=== PATIENT | male | born 1955 | race Caucasian/White ===

== ENCOUNTER 2017-09-14 22:44 | Emergency (ER) | payer BC ==
[~2017-09-14] VITALS: Ht 177.8 cm; Wt 104.3 kg
[2017-09-14 22:50] VITALS: BP_SYST 189
== END 2017-09-14 23:15 | disposition left against medical advice (07) ==
LOC: SED 22:44
DX: R04.0 Epistaxis (principal); Z53.21 Procedure and treatment not carried out due to patient leaving prior to being seen by health care provider

== ENCOUNTER 2019-08-12 19:58 | Inpatient (IN) | payer BC ==
[~2019-08-12] VITALS: Ht 175.3 cm; Wt 91.6 kg
[2019-08-12 20:07] VITALS: BP_SYST 133
--- NOTE | 2019-08-12 20:11 | NUR ---
Patient to ER bed 06 to gown for evaluation. Side rails up. Report given to SERAFIN Holt
--- NOTE | 2019-08-12 20:14 | NUR ---
ER Dr. Bryson at bedside examining patient.
--- NOTE | 2019-08-12 20:16 | NUR ---
Pt present to ER with c/o increased anxiety. Pt brought in pt for increased anxiety for the past month. Pt states he lost money "about a month ago" at a coffee place. Pt states chest pain located in the middle of chest and rates pain 10/10. Pt states pain is a "stabbing pain." Pt states he "can't sleep and has tingling down arms and legs." Pt states he has nightmares of losing money "over and over again." Pt states he has lost approximately 20 pounds the last month due to lack of appetite. Pt states he was prescribed ativan but ran out. Pt denies SOB, dizziness and thoughts of suicide or hurting self. Will continue to monitor.
[2019-08-12] MEDS ORDERED: VENL75CA PO (20:17)
[2019-08-12] MEDS ORDERED: CAT.1 PO (20:17)
[2019-08-12] MEDS ORDERED: MIRT15TA7 PO (20:17)
[2019-08-12] MEDS ORDERED: METF1000 PO (20:17)
[2019-08-12] MEDS ORDERED: LORA-258 PO (20:17)
[2019-08-12] MEDS ORDERED: LOSA1TAB43 PO (20:17)
[2019-08-12] MEDS ORDERED: NOR10 PO (20:17)
--- NOTE | 2019-08-12 20:18 | NUR ---
Medication reconciliation completed with information provided by self. Any prior medication reconciliation on file was reviewed and corrected.
[2019-08-12] MEDS ORDERED: ASPIRIN 325 MG TABLET PO ONE (20:30)
[2019-08-12] MEDS ORDERED: LORazepam 2 MG/ML VIAL IVP ONE (20:30)
--- NOTE | 2019-08-12 20:34 | NUR ---
# 18 gauge angiocath placed to LAC. Use of asceptic technique. Opsite placed over site. Blood return noted. Blood for lab drawn from site. Flushed with 10 cc of normal saline. No evidence of infiltration noted. Patient tolerated well.
--- NOTE | 2019-08-12 20:36 | NUR ---
medicated per md orders. patient tolerated well
[2019-08-12 20:51] LABS: BASOPHILS % (AUTO) 0.6 % (0.0-2.0); EOSINOPHILS # (AUTO) 0.3 K/uL (0.0-0.4); LYMPHOCYTES # (AUTO) 2.4 K/uL (1.0-5.5)
[2019-08-12 21:00] LABS: EOSINOPHILS % (AUTO) 3.4 % (0.0-4.0); HEMATOCRIT 41.7 % (36-54); HEMOGLOBIN 14.9 g/dL (14.0-18.0); LYMPHOCYTES % (AUTO) 28.8 % (20.5-51.5); MEAN CORPUSCULAR HEMOGLOBIN 30 pg (27-31); MEAN CORPUSCULAR HGB CONC 36 % (32-36); MEAN CORPUSCULAR VOLUME 85 fL (79.0-98.0); MONOCYTES # (AUTO) 0.6 K/uL (0.0-1.0); MONOCYTES % (AUTO) 7.7 % (1.7-9.3); NEUTROPHILS # (AUTO) 4.9 K/uL (1.8-7.7); NEUTROPHILS % (AUTO) 59.5 % (40.0-70.0); PLATELET COUNT (AUTO) 294 K/uL (130-430); RED BLOOD CELL COUNT(AUTO) 4.92 MIL/uL (4.2-6.2); RED CELL DISTRIBUTION WIDTH 13.1 % (9.0-15.0); WHITE BLOOD COUNT (AUTO) 8.2 K/uL (4.8-10.8)
[2019-08-12 21:26] LABS: CALCIUM 9.3 mg/dL (8.4-11.0); CREATININE 1.62 mg/dL (0.55-1.30)
[2019-08-12 21:37] LABS: ALBUMIN 3.8 g/dL (3.4-4.8); TOTAL BILIRUBIN 1.4 mg/dL (0.0-1.0)
[2019-08-12 21:47] LABS: POTASSIUM 2.8 mmol/L (3.5-5.1)
[2019-08-12] MEDS ORDERED: KCL 20 mEq in 100 mL (PREMIX) 100 ML IV ONE (22:00)
[2019-08-12] MEDS ORDERED: POTASSIUM CHLORIDE 20 MEQ/PKT PACKET PO ONE (22:00)
--- NOTE | 2019-08-12 22:21 | NUR ---
Pt medicated with potassium. Pt tolerated well. Will continue to monitor.
--- NOTE | 2019-08-12 23:00 | NUR ---
ORDERS RECIEVED FROM DR. JOINER.
--- NOTE | 2019-08-13 00:13 | NUR ---
Patient resting quietly with at bedside. No acute distress noted. Vital signs within normal range. Will continue to monitor.
[2019-08-13] MEDS ORDERED: LORazepam 1 MG TABLET PO PRN ×2 (00:30→15:00)
[2019-08-13] MEDS ORDERED: INSULIN REGULAR, HUMAN 100 UNITS/ML, 10 ML VIAL (humuLIN R) SUBCUT PRN (00:30)
--- NOTE | 2019-08-13 01:06 | NUR ---
Patient will be admitted to [facility]. Admitted to Telemetry unit. Will go to room 130B. Belongings list completed. Complete and up to date summary report printed. SBAR report to be given at bedside with opportunity for questions.
--- NOTE | 2019-08-13 01:08 | NUR ---
Transfer to Telemetry 130B via ACLS protocol. Licensed nurse present. IV present no signs or symptoms of infiltration.
--- NOTE | 2019-08-13 02:20 | NUR ---
BROUGHT IN FROM .VIA [facility] WITH AN ADMITTING DIAGNOSIS OF CHEST PAIN. PLACED IN ROOM 130-B. PT. IS AWAKE, STUPOROUS, VERBALLY RESPONSIVE. AFEBRILE, NOT IN ACUTE DISTRESS. DENIES ANY PAIN OR DISCOMFORT. VERBALIZED RELIEF OF ALL SYMPTOMS AND IS FEELING VERY RELAXED AT THIS TIME. CX=998/92, OTHER VS ARE WITHIN NORMAL LIMITS. PT.HOOKED TO THE HOUSEMAID AND IS SINUS RHYTHM AT 80'S/MINUTE ON THE MONITOR. VS STABLE, WILL CONTINUE TO MONITOR. NEEDS ATTENDED.
--- NOTE | 2019-08-13 02:20 | NUR ---
ADMISSION: The patient, [place] FRIAS, 63 y/o, M admitted by JAISON JOINER MD, was given written information regarding hospital policies, unit procedures and contact persons. Valuables were checked and pt was informed his nurse will be Jhoan.
[2019-08-13 02:34] VITALS: BP_SYST 143
--- NOTE | 2019-08-13 04:00 | NUR ---
ASLEEP, NOT IN ACUTE DISTRESS. NO PAIN OR DISCOMFORT NOTED. NO CHANGE IN CONDITION.
--- NOTE | 2019-08-13 04:15 | NUR ---
Consultation Paged Reason for Consultation: CP Was consult called: Y Person who was notified: Nancy Consulting Physician: Steven Estrada Clinical Services Director Ordering Physician: Dr. Rosario
--- NOTE | 2019-08-13 06:18 | NUR ---
FINGERSTICK BLOOD SUGAR TXDRS=481. NO INSULIN COVERAGE NEEDED.
[2019-08-13 06:36] LABS: THYROID STIMULATING HORMONE 1.95 uIu/mL (0.36-3.74)
--- NOTE | 2019-08-13 07:10 | NUR ---
ENDORSED CARE TO ALBAN NUNEZ.
--- NOTE | 2019-08-13 09:10 | NUR ---
Patient resting in bed able to sleep after admission , feeling of chest discomfort whenever he feels anxious , due Ativan given PO ,safety / fall precaution initiated , Dr. Fierro aware for Lexiscan in am at 1100 hour , instructed patient no caffeine verbalized understanding.
[2019-08-13 09:16] VITALS: BP_SYST 129
[2019-08-13] MEDS ORDERED: cloNIDine HCL 0.1 MG TABLET PO PRN (09:30)
[2019-08-13] MEDS ORDERED: PANTOPRAZOLE SODIUM 40 MG TAB PO ONE (09:30)
[2019-08-13] MEDS ORDERED: POTASSIUM CHLORIDE 20 MEQ TAB.PRT.SR PO ONE (12:15)
[2019-08-13 12:21] VITALS: BP_SYST 138
[2019-08-13] MEDS: LR 1,000 ML IV SCH ×2 (12:57→21:46)
[2019-08-13 13:11] LABS: ANION GAP 7 (5-15); CALCIUM 8.8 mg/dL (8.4-11.0); CHLORIDE 101 mmol/L (98-107); CREATININE 1.13 mg/dL (0.55-1.30); GLUCOSE 133 mg/dL (70-99); POTASSIUM 3.6 mmol/L (3.5-5.1); SODIUM SERUM 136 mmol/L (136-145); UREA NITROGEN, BLOOD 29 mg/dL (8-21)
[2019-08-13 13:20] LABS: GFR AFRICAN AMERICAN 85 mL/min (>90)
--- NOTE | 2019-08-13 15:01 | NUR ---
Psychosocial /safety Patient ambulate to hallway with steady gait , using IV pole verbalized feeling of anxiety , walking is not helping , Dr. Rosario informed with n.o. carried out safety/fall precaution initiated.
[2019-08-13 16:30] VITALS: BP_SYST 140
--- NOTE | 2019-08-13 17:00 | NUR ---
Patient was reminded that we need a urine specimen for analysis , clean bottle given will follow up.
[2019-08-13] MEDS: metFORMIN HCL 500 MG TABLET PO SCH (17:08)
[2019-08-13] MEDS ORDERED: metFORMIN HCL 500 MG TABLET PO SCH (18:00)
[2019-08-13] MEDS ORDERED: LORazepam 2 MG/ML VIAL IVP PRN (18:00)
[2019-08-13 19:05] VITALS: BP_SYST 147
[2019-08-13 20:00] VITALS: BP_SYST 147
[2019-08-13] MEDS ORDERED: MIRTAZAPINE 15 MG TABLET PO SCH ×2 (21:00)
[2019-08-13] MEDS ORDERED: amLODIPine BESYLATE 10 MG TABLET PO SCH (21:00)
--- NOTE | 2019-08-13 21:03 | NUR ---
patient refused lorazepam iv. Dr Rosario pagejohanny for orders,awaiting orders. Addendum: 08/13/19 at 2225 by [facility] wireless manager Dr Carroll called back and informed aboput the patient.s request. ordered lorazepam 1 mg ivp and given
[2019-08-13] MEDS: VENLAFAXINE HCL 50 MG TABLET PO SCH (21:23)
[2019-08-13] MEDS: LORazepam 2 MG/ML VIAL IVP PRN (21:42)
[2019-08-13 22:11] LABS: CHOLESTEROL 145 mg/dL (<200); HDL CHOLESTEROL 37 mg/dL (>45); LDL CHOLESTEROL 91 mg/dL (<100); TRIGLYCERIDES 126 mg/dL (30-150)
--- NOTE | 2019-08-13 22:25 | NUR ---
patient claims lorazepam ivp did not do anything and he is still awake,requesting for sleeping medications but none. Dr Rosario paged again for patient,s request.
[2019-08-13] MEDS ORDERED: TEMAZEPAM 15 MG CAPSULE PO PRN (23:00)
--- NOTE | 2019-08-13 23:15 | NUR ---
restoril 30 mg po given fpr sleep per Dr Marlene harris
--- NOTE | 2019-08-14 00:23 | NUR ---
asleep.vital signs not taken as patient desires to sleep
[2019-08-14 04:00] VITALS: BP_SYST 154
--- NOTE | 2019-08-14 05:58 | NUR ---
PLACED ON OS @ 2LITER NASAL CANNULA THE PAIIENTS SATURATION TO 89% WHEN ASLEEP. WILL INFORMDR JOINER ABOUT IT
--- NOTE | 2019-08-14 07:20 | NUR ---
report given to the day shift rn to relay to Dr Rosario that the patient was placed on oxegen at 2l nasal cannula as the patient has low saturation when asleep/ 1 juice given for blood sugar 105mg/dl. npo thereafter,
[2019-08-14] MEDS: metFORMIN HCL 500 MG TABLET PO SCH (08:00)
[2019-08-14 08:07] VITALS: BP_SYST 151
[2019-08-14 08:18] LABS: BASOPHILS % (AUTO) 0.5 % (0.0-2.0); EOSINOPHILS # (AUTO) 0.4 K/uL (0.0-0.4); EOSINOPHILS % (AUTO) 4.6 % (0.0-4.0); HEMATOCRIT 39.1 % (36-54); HEMOGLOBIN 13.6 g/dL (14.0-18.0); LYMPHOCYTES # (AUTO) 2.1 K/uL (1.0-5.5); LYMPHOCYTES % (AUTO) 26.6 % (20.5-51.5); MEAN CORPUSCULAR HEMOGLOBIN 30 pg (27-31); MEAN CORPUSCULAR HGB CONC 35 % (32-36); MEAN CORPUSCULAR VOLUME 86 fL (79.0-98.0); MONOCYTES # (AUTO) 0.7 K/uL (0.0-1.0); NEUTROPHILS # (AUTO) 4.8 K/uL (1.8-7.7); NEUTROPHILS % (AUTO) 59.3 % (40.0-70.0); PLATELET COUNT (AUTO) 209 K/uL (130-430); RED BLOOD CELL COUNT(AUTO) 4.55 MIL/uL (4.2-6.2); RED CELL DISTRIBUTION WIDTH 13.4 % (9.0-15.0)
[2019-08-14 08:57] LABS: ALBUMIN 3.2 g/dL (3.4-4.8); CALCIUM 8.4 mg/dL (8.4-11.0); CREATININE 1.06 mg/dL (0.55-1.30); POTASSIUM 3.5 mmol/L (3.5-5.1); TOTAL BILIRUBIN 0.9 mg/dL (0.0-1.0)
[2019-08-14] MEDS ORDERED: PANTOPRAZOLE SODIUM 40 MG TAB PO SCH (09:00)
--- NOTE | 2019-08-14 09:38 | NUR ---
To cardio department for Stress test, NPO alert/oriented denies any chest pain no anxiety , endorsed patient to Lien.
[2019-08-14 09:49] LABS: BARBITURATE, URINE NEGATIVE (NEG <=200); BENZODIAZEPINE, URINE POSITIVE (NEG <=150); CANNABINOID, URINE NEGATIVE (NEG <=50); COCAINE, URINE NEGATIVE (NEG <=150); METHAMPHETAMINES SCREEN,URINE NEGATIVE (NEG <=500); OPIATE, URINE NEGATIVE (NEG <=100); PHENCYCLIDINE SCREEN,URINE NEGATIVE (NEG <=25); UR TRICYCLIC ANTIDEPRESSANTS NEGATIVE (NEG <=300); URINE AMPHETAMINE NEGATIVE (NEG <=500); URINE METHADONE NEGATIVE (NEG <=200); URINE OXYCODONE SCREEN NEGATIVE (NEG <=100); URINE PROPOXYPHENE SCREEN NEGATIVE (NEG <=300)
--- NOTE | 2019-08-14 10:40 | NUR ---
Stress test completed tolerates well per cardiology physician, early lunch served and blood sugar within normal limits,needs attended, encouraged patient to increase oral fluid intake verbalized understanding.
[2019-08-14] MEDS: VENLAFAXINE HCL 50 MG TABLET PO SCH ×2 (10:44→16:34)
[2019-08-14] MEDS ORDERED: REGADENOSON 0.4 MG/5 ML SYRINGE IVP ONE (11:00)
[2019-08-14 11:04] VITALS: BP_SYST 133
[2019-08-14] MEDS: LR 1,000 ML IV SCH (11:34)
[2019-08-14 12:02] LABS: BILIRUBIN,URINE NEGATIVE (NEGATIVE); BLOOD, URINE NEGATIVE (NEGATIVE); CLARITY/URINE CLEAR (CLEAR); COLOR,URINE YELLOW (YELLOW); GLUCOSE,URINE TRACE (NEGATIVE); KETONES,URINE NEGATIVE (NEGATIVE); LEUKOCYTE ESTERASE ,URINE NEGATIVE (NEGATIVE); NITRITE, URINE NEGATIVE (NEGATIVE); PH,URINE 6.5 (5.0-8.0); PROTEIN URINE NEGATIVE (NEGATIVE); UROBILINOGEN,URINE 0.2 (0.2-1.0)
--- NOTE | 2019-08-14 12:25 | NUR ---
Patient is having a bad anxiety worried at home , asking to give him to relax , Ativan 1 mg IV push given slowly , safety/fall precaution initiated verbalized understanding., will monitor, pagejohanny Rosario. Addendum: 08/14/19 at 1257 by Dena Pal RN Patient sleeping, telemetry NSR will monitor.
[2019-08-14] MEDS: LORazepam 2 MG/ML VIAL IVP PRN (12:31)
--- NOTE | 2019-08-14 14:45 | NUR ---
Seen and examined by patient wants to go home anxiety is controlled, BELKIS was informed she will come to lemon picker the by 5 pm.
[2019-08-14] MEDS ORDERED: LOSA100T3 PO (14:55)
[2019-08-14] MEDS ORDERED: PRO40 PO (14:55)
[2019-08-14 15:49] VITALS: BP_SYST 138
--- NOTE | 2019-08-14 16:07 | NUR ---
ROUNDS IN THE ROOM WITH DR JOINER WHO INFORMED PATIENT ABOUT FAMILY REQUEST OF PSYCHIATRIC EVALUTION DUE TO PATIENT ANXIETY. PATIENT APPEARS ANXIOUS. EXPLAINED TO PATIENT THAT A PSYCHIATRIST WILL SEE HIM TODAY OR TOMORROW. PATIENT PREFERED TO BE SEEN OUT PATIENT BY A PSYCHIATRIST OUTPATIENT AND WANTS TO GO HOME
[2019-08-14 16:08] VITALS: BP_SYST 138
--- NOTE | 2019-08-14 16:15 | NUR ---
D/C Patient Patient given medication reconciliation form and D/C instructions. Exit Care provided. Patient verbalized understanding. MD discussed with patient the results and treatment provided. Ambulatory with steady gait for discharge to home. Patient in stable condition, ID band removed. IV catheter removed, intact and dressing applied, no active bleeding. Rx of losartan and pantoprazole given. Patient educated on pain management.
--- NOTE | 2019-08-14 17:35 | NUR ---
Discharged home accompanied by the , instruction repeated to , to collect medication in pharmacy [facility] verbalized understanding, all belongings taken.
== END 2019-08-14 17:35 | disposition home or self-care (01) | DRG 391 ==
LOC: SED 19:58 → STU 08-13 00:20
PROVIDERS: ADMIT Internal Medicine; ATTEND Internal Medicine
DX: K29.70 Gastritis, unspecified, without bleeding (principal); N17.0 Acute kidney failure with tubular necrosis; R07.89 Other chest pain; E11.9 Type 2 diabetes mellitus without complications; E87.6 Hypokalemia; F32.9 Major depressive disorder, single episode, unspecified; T50.2X5A Adverse effect of carbonic-anhydrase inhibitors, benzothiadiazides and other diuretics, initial encounter; F41.9 Anxiety disorder, unspecified; E78.5 Hyperlipidemia, unspecified; E78.00 Pure hypercholesterolemia, unspecified; I10 Essential (primary) hypertension; Z87.891 Personal history of nicotine dependence; Z79.899 Other long term (current) drug therapy; Y92.89 Other specified places as the place of occurrence of the external cause
CPT/HCPCS: 36415; 71045; 71270-TC; 80048; 80053; 80061; 80307; 81003; 82550-TC; 82962; 83880; 84443-TC; 84484; 85025; 93005; 93017; 93306; 96374; 99285; G0378; J1815; J2060; J2785; J3480; J7120

== ENCOUNTER 2019-10-13 14:42 | Inpatient (IN) | payer BC ==
[~2019-10-13] VITALS: Ht 172.7 cm; Wt 88.0 kg
[~2019-10-13 14:42] MED LIST: CAT.1 PO; LORA-258 PO; LOSA100T3 PO; METF1000 PO; MIRT15TA7 PO; NOR10 PO; PRO40 PO; VENL75CA PO
[2019-10-13 14:45] VITALS: BP_SYST 137
--- NOTE | 2019-10-13 14:50 | NUR ---
Patient triaged and placed in waiting room. VSS and patient appears in no acute distress at this time. Accompanied by SELF, awaiting available bed, and MD notified of need for MSE.
--- NOTE | 2019-10-13 15:28 | NUR ---
BROUGHT BACK TO BED #8 AND REPORT GIVEN TO DOYLE
--- NOTE | 2019-10-13 15:47 | NUR ---
ER Dr. Starr at bedside examining patient.
[2019-10-13] MEDS ORDERED: KETOROLAC TROMETHAMINE 60 MG/2 ML VIAL IM ONE (16:00)
[2019-10-13 16:01] LABS: BASOPHILS % (AUTO) 0.4 % (0.0-2.0); EOSINOPHILS # (AUTO) 0.2 K/uL (0.0-0.4); EOSINOPHILS % (AUTO) 2.8 % (0.0-4.0); HEMATOCRIT 39.7 % (36-54); HEMOGLOBIN 13.6 g/dL (14.0-18.0); LYMPHOCYTES # (AUTO) 1.2 K/uL (1.0-5.5); LYMPHOCYTES % (AUTO) 16.3 % (20.5-51.5); MEAN CORPUSCULAR HEMOGLOBIN 30 pg (27-31); MEAN CORPUSCULAR HGB CONC 34 % (32-36); MEAN CORPUSCULAR VOLUME 88 fL (79.0-98.0); MONOCYTES # (AUTO) 0.7 K/uL (0.0-1.0); MONOCYTES % (AUTO) 9.7 % (1.7-9.3); NEUTROPHILS # (AUTO) 5.1 K/uL (1.8-7.7); NEUTROPHILS % (AUTO) 70.8 % (40.0-70.0); PLATELET COUNT (AUTO) 274 K/uL (130-430); RED BLOOD CELL COUNT(AUTO) 4.53 MIL/uL (4.2-6.2); WHITE BLOOD COUNT (AUTO) 7.2 K/uL (4.8-10.8)
--- NOTE | 2019-10-13 16:14 | NUR ---
Pt c/o lower abd pain that started last night. States that he hasn't had a BM for 10 days. Denies n/v/d. Hx of kidney stones, states that he thought it was a kidney stone. Denies dysuria
--- NOTE | 2019-10-13 16:18 | NUR ---
Medicated for pain per MD orders. Tolerated well, no adverse reaction. Off unit for CT via wheelchair
[2019-10-13 16:20] LABS: INR 1.1 (0.80-1.20); PROTHROMBIN TIME 11.1 SECS (9.5-12.5)
[2019-10-13 16:40] LABS: CALCIUM 8.7 mg/dL (8.4-11.0); CREATININE 0.9 mg/dL (0.55-1.30); POTASSIUM 3.8 mmol/L (3.5-5.1)
[2019-10-13 16:46] LABS: ALBUMIN 3.1 g/dL (3.4-4.8); TOTAL BILIRUBIN 0.7 mg/dL (0.0-1.0)
--- NOTE | 2019-10-13 17:22 | NUR ---
Dr. Yee spoke with Dr. Starr, states to call Dr. Rosario regarding admission.
--- NOTE | 2019-10-13 17:25 | NUR ---
Dr. Starr at bedside speaking with pt regarding ED results and admission.
--- NOTE | 2019-10-13 17:48 | NUR ---
Unable to update med rec at this time. Pt can't remember the names of the medications, states that his will bring his meds
--- NOTE | 2019-10-13 18:04 | NUR ---
ADMISSION NOTE Received patient from ER via brian, received report from DOYLE BETANCOURT. Patient admitted with diagnosis of ABDOMINAL PAIN. Patient oriented to hospital routine, call light, toileting and safety-patient verbalized understanding.
[2019-10-13 18:14] VITALS: BP_SYST 161
--- NOTE | 2019-10-13 18:46 | NUR ---
RN note patient is anxious and pacing in the room and around the station, states he is waiting for his , a message was left with dietary so they can bring him a dinner tray, water was brought to the patient, no signs of distress at this time, will bring medications from home to confirm with us, walks steady, IV dressing secured, no other needs addressed at this time, will endorse care to weight shifter nurse to continue with care, patient states that he sees a psychiatrist but it has been a month since he last saw him.
--- NOTE | 2019-10-13 19:15 | NUR ---
INITIAL NOTES: pt is awake, alert, oriented x 3. no pain. no sob, anxious, stable. ambulatory. steady gait. now sitting on bed, eating snacks, explained to pt plan of care plan of care, pt verblaized understanding. needs attended. call light in reach. safety precaution on. will monitor
--- NOTE | 2019-10-13 19:30 | NUR ---
SEEN BY DR. JOINER AT BEDSIDE.
[2019-10-13 19:38] VITALS: BP_SYST 156
[2019-10-13] MEDS ORDERED: DEXTROSE 50% JECT 50 ML DISP.SYRIN IVP PRN (19:45)
[2019-10-13] MEDS ORDERED: cloNIDine HCL 0.1 MG TABLET PO SCH (19:45)
[2019-10-13] MEDS: amLODIPine BESYLATE 10 MG TABLET PO SCH (20:44)
[2019-10-13] MEDS: MIRTAZAPINE 15 MG TABLET PO SCH (20:45)
[2019-10-13] MEDS: LORazepam 1 MG TABLET PO PRN (20:47)
[2019-10-13] MEDS: INSULIN REGULAR, HUMAN 100 UNITS/ML, 10 ML VIAL (humuLIN R) SUBCUT PRN (20:58)
[2019-10-13] MEDS ORDERED: MIRTAZAPINE 15 MG TABLET PO SCH (21:00)
[2019-10-13] MEDS ORDERED: TEMAZEPAM 15 MG CAPSULE PO PRN (21:15)
--- NOTE | 2019-10-13 21:45 | NUR ---
pt is awake, alert, no sob, no pain. talking to at bedside.
--- NOTE | 2019-10-13 23:06 | NUR ---
pt is sleeping, comfortable. no sob, stable, safety precaution in placed.
[2019-10-13 23:43] VITALS: BP_SYST 169
[2019-10-14] VITALS (7 sets, daily range): BP systolic 151–163
--- NOTE | 2019-10-14 00:06 | NUR ---
Consultation Paged Reason for Consultation: Lymphoma Was consult called: Y Person who was notified: Nancy Consulting Physician: Amee Stover Welder And Fitter Ordering Physician: Dr. Rosario Addendum: 10/14/19 at 0010 by Mena Lynn MO/ Person Who was Notified: Nicolasa
[2019-10-14] MEDS: cloNIDine HCL 0.1 MG TABLET PO PRN ×2 (00:09→08:36)
--- NOTE | 2019-10-14 00:35 | NUR ---
pt is sleeping, not distress, no sob, pt bp is high, prn clonidine given. stable. needs attended. safety precaution in placed.
--- NOTE | 2019-10-14 01:12 | NUR ---
Patient is sitting at bedside speaking to social work program coordinator, he took his medications without any complaints. Bed is low and locked, call light is within reach and two side rails are up. Advised patient to call if he should need anything. Mary BETANCOURT
--- NOTE | 2019-10-14 02:00 | NUR ---
sleeping on his side,comfortable, no sob, not distress. stable, safety precaution.
--- NOTE | 2019-10-14 04:54 | NUR ---
sleeping, no labored breathing, stable, no sign of pain. stable.
--- NOTE | 2019-10-14 06:23 | NUR ---
SLEEPING, NO PAIN, STABLE, BS-108, NEEDS ATTENDED.
--- NOTE | 2019-10-14 07:10 | NUR ---
closing: pt is resting, wakes up during report. stable. no pain. needs attended. bedside report given to am rn.
--- NOTE | 2019-10-14 07:35 | NUR ---
Patient complains of pain, paged to ask for pain meds, meds ordered were zofran 4mg, norco 5mg for mod pain, norco 10mg for severe pain and colace 250mg BID for constipation. [place] 10mg was given for his current severe pain. I will assess pain again. Mary BETANCOURT
[2019-10-14] MEDS: LOSARTAN POTASSIUM 50 MG TABLET (COZAAR) PO SCH (08:07)
[2019-10-14] MEDS: PANTOPRAZOLE SODIUM 40 MG TAB PO SCH (08:07)
[2019-10-14] MEDS: metFORMIN HCL 500 MG TABLET PO SCH ×2 (08:07→17:12)
[2019-10-14] MEDS ORDERED: ONDANSETRON HCL 4 MG/2 ML VIAL IM PRN (08:15)
[2019-10-14] MEDS: HYDROcodone/ACETAMIN 10-325 MG TAB PO PRN ×2 (08:36→20:58)
--- NOTE | 2019-10-14 09:15 | NUR ---
Pain assessment, pain has subsided, patient states he felt anxious so we gave him ativan 1mg. Patient is in bed watching TV. He does not present new complaints. Juan M BETANCOURT
[2019-10-14] MEDS: LORazepam 1 MG TABLET PO PRN ×4 (09:20→20:58)
[2019-10-14] MEDS ORDERED: DIATR MEGLU/DIATRIZ SOD 30 ML SOLUTION PO ONE (10:34)
[2019-10-14] MEDS: INSULIN REGULAR, HUMAN 100 UNITS/ML, 10 ML VIAL (humuLIN R) SUBCUT PRN ×3 (11:57→21:08)
[2019-10-14] MEDS: DOCUSATE SODIUM 250 MG CAPSULE PO SCH ×2 (11:58→20:58)
[2019-10-14] MEDS: HYDROcodone/ACETAMIN 5-325 MG TAB (NORCO/ VICODIN) PO PRN (12:46)
[2019-10-14] MEDS ORDERED: IOHEXOL 100 ML IV ONE (13:40)
--- NOTE | 2019-10-14 14:34 | NUR ---
Cnc Mill Operator: met with pt. to conduct a DCPA and a Social Work Interview. BALLOON MAKER first met with Rn. Underwood to inquire about the suicidal risk referral BALLOON MAKER received. Rn stated she had pt. use a paper tray but wanted to speak to him. Rn and BALLOON MAKER went to speak to pt. Rn asked pt. if he was suicidal. Pt. replied he was not. BALLOON MAKER introduced self to pt. He was able to confirm the demographic info on his face sheet. Re family support. pt. stated his is keeping him together. She will be visiting him later in the day. Pt. also has two children ages, 24 and 21 who are both employed and one attends college. Pt. stated he has been depressed. 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 Since then he has not been able to sleep well. He was [facility] to [facility] in August of 2018 because he stated he was feeling heart palpitations and may have been suffering from a panic attack. He stated he suffered from a nervous breakdown. Pt. stated he is taking depression medication, but if he feels good on a particular day, he will not take it. BALLOON MAKER tried to educate him on the importance of taking the medication as the DrEssie prescribed. It he stops taking the meds. he will not feel well. Pt. said he understood. He went on to say as he grew teary eyed, "My regret is that I lost the money and now I cannot give it my children. BALLOON MAKER asked pt. a couple of times about feeling suicidal. Pt. stated each time that he was not suicidal. During the conversation, pt. stated, "Ok, I have felt suicidal all throughout August and " He said he would harm himself with pills. BALLOON MAKER asked him if he was feeling suicidal today. Pt. hesitated and said he was not. BALLOON MAKER asked pt. if he would feel comfortable speaking with a therapist. Pt. stated he would. BALLOON MAKER gave pt. some mental health resources even though pt. stated he goes to see Dr. Shirin Orourke in [place] a PCP. Pt. stated his suicidal thoughts have taken a back seat now that he is in the hospital. He stated one of the Drs. came in to see him and used the word,"Lymphoma". This scared him and now he said DrEssie was vague, but he does not know if he has Cancer. Pt said even saying the word, Cancer makes him feel nervous and anxious. BALLOON MAKER tried to ease pts. worries and told him, it is good to get tested so the Dr. can come up with the correct treatment plan. Pt. agreed to wait to be taken for a scan and to wait for his Dr. to come speak to him. Pt. was nervous and anxious. BALLOON MAKER asked pt. if he needed anything. Pt. replied he did not. BALLOON MAKER spoke to Rn. Underwood to share with her some pertinent info from her interview with the pt. BALLOON MAKER asked if she could have Dr. Rosario get a psyc. eval on pt. Rn texted Dr. Rosario some info and made a request. BALLOON MAKER will remain available as needed. Addendum: 10/14/19 at 1653 by Teresa DELCID Cnc Mill Operator: BALLOON MAKER gave pt. mental health resources.
--- NOTE | 2019-10-14 14:38 | NUR ---
CONSULT PSYCH DEPRESSION DR STEEN [phone] S/W [facility] OFFICE FACE SHEET FAXED TO [phone]
--- NOTE | 2019-10-14 15:56 | NUR ---
Patient is in bed and verbalizes no new complaints. He states that his pain is completely gone at the moment. Bed is low and locked, call light is within reach and two side rails are up. Advised patient to call if she should need anything. Mary BETANCOURT
--- NOTE | 2019-10-14 18:28 | NUR ---
Closing notes: Patient is in his room watching TV, he ate all of his dinner and asked for ativan which was given around 5:20pm. Doctor Marlene came by and explained the plan of care to the patient and what to expect next. A possible biopsy may be ordered if the recent CT justifies. Bed is low and locked, call-light is within reach. Mary BETANCOURT
--- NOTE | 2019-10-14 20:00 | NUR ---
received pt in bed with at bedside ,v/s and assessment done same stable ,pt pt request pain meds and stes he is anxious at this time meds given for same ,later apperas calm and resting in no further distress at this time
--- NOTE | 2019-10-14 20:00 | NUR ---
received pt in bed v/s and assessment done same stable , at bedside ,c/o pain meds given for same elsie wee.
[2019-10-14] MEDS: MIRTAZAPINE 15 MG TABLET PO SCH (20:57)
[2019-10-14] MEDS: amLODIPine BESYLATE 10 MG TABLET PO SCH (20:59)
[2019-10-15] VITALS: BP_SYST 150
--- NOTE | 2019-10-15 04:27 | NUR ---
NOTES: assumed care from nurse Almaguer. pt. sleeping when checked, no acute distress. condition observed. call light within reach.
--- NOTE | 2019-10-15 05:05 | NUR ---
NOTES: charge nurse Marjorie told me to give back nurse Rosina her pt. to resume care.
[2019-10-15 07:36] VITALS: BP_SYST 163
[2019-10-15] MEDS: metFORMIN HCL 500 MG TABLET PO SCH ×2 (07:58→17:46)
[2019-10-15 08:00] VITALS: BP_SYST 163
--- NOTE | 2019-10-15 08:00 | NUR ---
Morning rounds: Patient is in bed sleeping, vitals are stable and voices no complaints. There were no new finding in his morning assessment. Bed is low, locked and call light is by his side. Mary BETANCOURT
[2019-10-15] MEDS: buPROPion HCL 100 MG TABLET.SA PO SCH (08:05)
[2019-10-15] MEDS: LORazepam 1 MG TABLET PO PRN ×2 (08:06→13:26)
[2019-10-15] MEDS: DOCUSATE SODIUM 250 MG CAPSULE PO SCH ×2 (08:06→20:41)
[2019-10-15] MEDS: HYDROcodone/ACETAMIN 10-325 MG TAB PO PRN ×3 (08:07→20:42)
[2019-10-15] MEDS: LOSARTAN POTASSIUM 50 MG TABLET (COZAAR) PO SCH (08:07)
[2019-10-15] MEDS: PANTOPRAZOLE SODIUM 40 MG TAB PO SCH (08:07)
--- NOTE | 2019-10-15 09:30 | NUR ---
Patient states that he is in pain and feel anxious, ativan and norco was given for pain. Will follow-up on pain management care. Juan M BETANCOURT
[2019-10-15 12:16] VITALS: BP_SYST 152
--- NOTE | 2019-10-15 12:23 | NUR ---
Patient in bed sleeping, he presents no new complaints, his vitals were stable. Patient went back to sleep after vitals. Bed is low and locked, 2 side rails up and the call-light within reach. Mary BETANCOURT
--- NOTE | 2019-10-15 14:00 | NUR ---
Dietitian Recommendations * [facility] diet w/ Glucerna BID (ONS provides an additional 440 kcal/day, 20 gm protein/day) * Encourage increase PO intakes LP, RD Please refer to Nutrition Assessment for details. Addendum: 10/15/19 at [address] Amended: Links added. Addendum: 10/15/19 at [address] COMPLETED IN ERROR. PLEASE DISREGARD.
--- NOTE | 2019-10-15 14:02 | NUR ---
Dietitian Recommendations * Recommend CCHO, cardiac diet w/ Glucerna BID (ONS provides an additional 440 kcal/day, 20 gm protein/day) * Encourage increase PO intakes LP, RD Please refer to Nutrition Assessment for details. Addendum: 10/15/19 at [address] Amended: Links added.
[2019-10-15 14:06] LABS: % FREE PSA 43.6 % (.); FREE PSA 1.92 ng/mL
[2019-10-15 15:51] LABS: PROSTATE SPECIFIC AG TOTAL 4.4 ng/mL (0.0-4.0)
[2019-10-15 16:26] VITALS: BP_SYST 163
[2019-10-15] MEDS: cloNIDine HCL 0.1 MG TABLET PO PRN (16:35)
[2019-10-15] MEDS ORDERED: BISACODYL 5 MG TABLET.DR (DULCOLAX) PO ONE (17:30)
[2019-10-15] MEDS ORDERED: MAGNESIUM CITRATE 300 ML ORAL SOLUTION PO ONE (17:30)
[2019-10-15] MEDS: INSULIN REGULAR, HUMAN 100 UNITS/ML, 10 ML VIAL (humuLIN R) SUBCUT PRN ×2 (17:40→20:50)
[2019-10-15] MEDS: HYDROcodone/ACETAMIN 5-325 MG TAB (NORCO/ VICODIN) PO PRN (17:45)
--- NOTE | 2019-10-15 18:47 | NUR ---
Closing notes: Patient is sleeping, voices no new complaints. He hasn't defecated in a while so the doctor prescribed mag citrate to help with the stools. A catapress was given earlier today to address his high blood pressure this afternoon. He is awaiting for to come and give new orders. His bed is low and locked and call-light is within reach. Juan M BETANCOURT
[2019-10-15 20:00] VITALS: BP_SYST 152
--- NOTE | 2019-10-15 20:00 | NUR ---
PT IN BED V/S AND ASSESSMENT DONE SAME STABLE ,MEDS GIVEN FOR PAIN , AT BEDSIDE NO DISTRESS NOTED
[2019-10-15] MEDS: amLODIPine BESYLATE 10 MG TABLET PO SCH (20:41)
[2019-10-15] MEDS: MIRTAZAPINE 15 MG TABLET PO SCH (20:41)
[2019-10-16 00:40] VITALS: BP_SYST 159
[2019-10-16] MEDS: HYDROcodone/ACETAMIN 10-325 MG TAB PO PRN ×4 (00:53→15:18)
[2019-10-16] MEDS: LORazepam 1 MG TABLET PO PRN ×2 (00:53→16:07)
--- NOTE | 2019-10-16 01:13 | NUR ---
PT ASLEEP AT THIS TIME
[2019-10-16] MEDS: cloNIDine HCL 0.1 MG TABLET PO PRN (07:54)
[2019-10-16] MEDS: LOSARTAN POTASSIUM 50 MG TABLET (COZAAR) PO SCH (07:55)
[2019-10-16 08:00] VITALS: BP_SYST 166
--- NOTE | 2019-10-16 08:00 | NUR ---
ASSUMPTION OF CARE: RECEIVED PT A/A/OX4, DX:ACUTE PAIN, R/T ABDOMINAL PAIN, PRESENTLY C/O PAIN, 7/10 VIA NUMERIC SCALE TO ABDOMEN, WILL MEDICATE WITH PRESCIBED MED PER ORDERED BY Humberto, BREATH SOUNDS ARE CLEAR, BREATHING UNLABORED, IV SITE INTACT, PATENT, NO REDNESS OR SWELLING, ORIENTED TO UNIT, AND CALL LIGHT, INSTRUCTED TO UTILIZE CALL LIGHT WHEN GETTING OOB, VERBALIZED UNDERSTANDING, WILL CONT' TO MONITOR AND ASSESS.
[2019-10-16] MEDS ORDERED: BISACODYL 5 MG TABLET.DR (DULCOLAX) PO PRN (09:00)
--- NOTE | 2019-10-16 09:00 | NUR ---
SPRAY GUN REPAIRER HELPER: MORNING MEDS GIVEN, PER ORDERED BY Humberto, TOLERATED WELL, WILL CONT' TO MONITOR AND ASSESS.
--- NOTE | 2019-10-16 10:30 | NUR ---
VISIT: AT BEDSIDE FOR ASSESSMENT OF PT, DISCUSSED POC, VERBALIZED UNDERSTANDING, PLANS TO FOLLOW-UP OUTPATIENT WITH IN HIS OFFICE, PT WILL ARRANGE FOR APPT TIME AND DATE, 'S INFO GIVEN, WILL CONT' TO MONITOR AND ASSESS.
[2019-10-16] MEDS: DOCUSATE SODIUM 250 MG CAPSULE PO SCH ×2 (10:54→22:12)
[2019-10-16] MEDS: metFORMIN HCL 500 MG TABLET PO SCH ×2 (10:54→17:46)
[2019-10-16] MEDS: PANTOPRAZOLE SODIUM 40 MG TAB PO SCH (10:55)
[2019-10-16] MEDS: HYDROcodone/ACETAMIN 5-325 MG TAB (NORCO/ VICODIN) PO PRN ×2 (11:00→17:38)
[2019-10-16] MEDS: buPROPion HCL 100 MG TABLET.SA PO SCH (11:01)
--- NOTE | 2019-10-16 11:30 | NUR ---
GLUCOSE MONITORING: BLOOD SUGAR IEDRW=378, 2 UNITS REGULAR INSULIN GIVEN SQ, TOLERATED WELL, CONDITION REMAINS STABLE AT THIS TIME, NO BM NOTED, PT CONT' TO C/O PAIN TO ABD, MEDICATED PER ORDERED, AT BEDSIDE, CALL LIGHT PLACED WITHIN REACH, WILL CONT' TO MONITOR AND ASSESS.
[2019-10-16 12:00] VITALS: BP_SYST 139
[2019-10-16] MEDS: INSULIN REGULAR, HUMAN 100 UNITS/ML, 10 ML VIAL (humuLIN R) SUBCUT PRN (12:50)
[2019-10-16 17:00] VITALS: BP_SYST 144
[2019-10-16] MEDS: ACETAMINOPHEN 325 MG TABLET PO PRN ×2 (17:38→23:54)
--- NOTE | 2019-10-16 17:45 | NUR ---
VISIT: AT BEDSIDE FOR ASSESSMENT OF PT, NEW ORDERS GIVEN, WILL CONT' TO MONITOR, WILL ENDORSE TO ELEMENTARY ART TEACHER NURSE.
[2019-10-16] MEDS ORDERED: LACTULOSE 20 GM/30 ML UDC PO ONE (18:00)
--- NOTE | 2019-10-16 18:00 | NUR ---
GLUCOSE MONITORING: BLOOD SUGAR KMDFO=963, NO COVERAGE REQUIRED, CONDITION REMAINS STABLE, CALL LIGHT PLACED WITHIN REACH, NEEDS MET, WILL CONT' TO MONITOR AND ASSESS.
--- NOTE | 2019-10-16 19:49 | NUR ---
RECIEVED SITTING ON THE EDGE OF THE BED ANXIOUS AND WANTS TO GO HOME BUT INFORMED THAT THE ORDERS IS TO DISCHARGE HIM AFTER BM, PATIENT ASSISTED BACK TO BED AND MADE COMFORTABLE.WITH CALL LIGHT WITHIN REACH
[2019-10-16 20:10] VITALS: BP_SYST 148
--- NOTE | 2019-10-16 20:12 | NUR ---
PATIENT TEMP 101.9. TYLENOL DOSE GIVEN 2 HOURS BEFORE AND NO DOSE DUE.DR JOINER PAGED TO INFORM AND AWAITING RESPONSE. COLD COMPRESS AND SPONGE BATH WILL BE DONE.AWSITING RESPONSE OF DR JOINER.
--- NOTE | 2019-10-16 20:18 | NUR ---
Paged Dr. Rosario s/w Alice
--- NOTE | 2019-10-16 20:45 | NUR ---
DR JOINER PAGED FOR THE SECOND TIME
--- NOTE | 2019-10-16 20:55 | NUR ---
DR JOINER WITH ORDERS AND CARRIED OUT
[2019-10-16] MEDS ORDERED: LR 500 ML IV ONE (21:00)
--- NOTE | 2019-10-16 21:58 | NUR ---
to the xray department evelyn the ordered chest xray via [facility]
--- NOTE | 2019-10-16 21:59 | NUR ---
back to bed and fixed in bed and made comfortable
[2019-10-16] MEDS: MIRTAZAPINE 15 MG TABLET PO SCH (22:11)
[2019-10-16] MEDS: OSELTAMIVIR PHOSPHATE 75 MG CAPSULE PO SCH (22:12)
[2019-10-16] MEDS: amLODIPine BESYLATE 10 MG TABLET PO SCH (22:12)
[2019-10-16 23:13] VITALS: BP_SYST 155
--- NOTE | 2019-10-16 23:25 | NUR ---
PATIENT NOTED SHIVERING .IV CANULLA NOTED TO BE INFITRATED AND RED. PULLED BY THE PATIENT. TEMP 101.9. DR JOINER PAGED THE PATIENT UNABLE VOMITED THE TYLENOL MEDICATION. IV CANNULA TO THE LEFT HAND INSERTED ASEPTICALLY. AWAITING FOR DR JOINER RESPONSE
--- NOTE | 2019-10-16 23:30 | NUR ---
Kandace Rosario s/nilton Frankel
--- NOTE | 2019-10-16 23:41 | NUR ---
Paged Toro Valderrama s/w Nancy
--- NOTE | 2019-10-16 23:46 | NUR ---
DR JOINER PAGED FOR THE SECOND TIME THE PATIENT DID NOT HAVE A BM AND IS STILL HAVING TEMP 101.9. DR LORENZO .D CALLED TO INFORM ABOUT THE PATIENT IS REPEATEDLY HAVING HIGH GRADE FEVER AND NEEDS ORDERS, AWAITING RESPONSE
[2019-10-17] VITALS (10 sets, daily range): BP systolic 110–169
[2019-10-17] MEDS: LR 1,000 ML IV SCH ×2 (00:03→09:03)
--- NOTE | 2019-10-17 00:12 | NUR ---
TRANSFERED TO ROOM 132 BED A TO BE NEAR TO THE NURSES STATION THE PATIENT IS UN ABLE TO FOLLOW INSTRUCTION AND WILL STAND AND WALK AROUND,WITH COMPLAINTS OF NAUSEA AND HAD VOMITED X1 PRIOR. UNABLE TO GIVE THE TYKLENOL AND ZOFRAN 4 MG IVP GIVEN FOR NAUSEA. PATIENT WAS ABLE TAKE THE TYLENOL DOSE AFTER THE ZOFRAN GIVEN. IVF RESUMED TO THE NEW IV CANNULA TO THE LAFT HAND. CONTINOUS COLD COMPRESS APPLIED. Addendum: 10/17/19 at 0017 by Twelve wheelchair rental clerk AMMUNITION COMPONENTS INSPECTOR INFORMED THAT THE PATIENT EXPRESS THAT HE WANTS TO AND CHARGE NURSE IS INFOFMED AND CHARGE NURSE THE PATIENT AND ANSWERED NO. WILL CONTINUE TO MONITOR.HAD A SMALL AMOUNT OF LOOSE BROWNISH STOOL CLEANED AND KEPT DRY ASSSITED TO THE COMMODE AND ASSISTED BACK TO BED AND MADE COMFORTABLE
--- NOTE | 2019-10-17 01:30 | NUR ---
PATIENT HR IS 118 TO 120/MIN, DR LORENZO CALLED WHILE I AM ON BREAK AND TALKED TO THE CHARGE NURSE AND DR LORENZO WILL COME TO SEE THE PATIENT. LATEST 101.6.TYKLENOL DOSE WAS GIVEN STILL THE TEMP IS ELEVATED,DR JOINER REPAGED FOR ORDERS.
--- NOTE | 2019-10-17 02:16 | NUR ---
assisted back to the bedside commode andhad moderate amount of liquids brownish stool .cleaned and kept dry and assited back to bed, vital signs rechecked and recorded
--- NOTE | 2019-10-17 03:58 | NUR ---
assisted to bed from the bedside commode ,and patient noted to be diaphoretic, and complaints mf nausea, blood sugar checked 189mg/dl. cleaned and kept dry. vital signs checked and recorded,
--- NOTE | 2019-10-17 04:42 | NUR ---
INFLUENZA A AND B SPECIMEN SENT TO LAB ASSISTED TO THE COMMODE BEDSIDE AND BACK TO BED AND MADE COMFORTABLE, WITH THE SAME IVF ON. LATEST TEMP 99.3
--- NOTE | 2019-10-17 05:52 | NUR ---
URINE SPECIMEN FOR COLLECTION AND SPECIMEN RECEPTACVLE AT BEDSIDE Addendum: 10/17/19 at 0600 by Andrey supervisor coffee RECEPTACLE FOR COLLECTION
--- NOTE | 2019-10-17 06:24 | NUR ---
BLOOD SUGAR 166MG/DL. NO COVERAHE GIVEN,PATIENT HAS POOR PO INTAKE
[2019-10-17 06:29] LABS: CALCIUM 8.9 mg/dL (8.4-11.0); CREATININE 1.51 mg/dL (0.55-1.30); POTASSIUM 3.3 mmol/L (3.5-5.1)
[2019-10-17 06:46] LABS: BASOPHILS % (AUTO) 0.1 % (0.0-2.0); HEMATOCRIT 34.9 % (36-54); HEMOGLOBIN 11.8 g/dL (14.0-18.0); LYMPHOCYTES # (AUTO) 0.6 K/uL (1.0-5.5); LYMPHOCYTES % (AUTO) 5.6 % (20.5-51.5); MEAN CORPUSCULAR HEMOGLOBIN 30 pg (27-31); MEAN CORPUSCULAR HGB CONC 34 % (32-36); MEAN CORPUSCULAR VOLUME 90 fL (79.0-98.0); MONOCYTES # (AUTO) 0.9 K/uL (0.0-1.0); NEUTROPHILS # (AUTO) 8.9 K/uL (1.8-7.7); NEUTROPHILS % (AUTO) 85.3 % (40.0-70.0); PLATELET COUNT (AUTO) 153 K/uL (130-430); RED CELL DISTRIBUTION WIDTH 14.1 % (9.0-15.0); WHITE BLOOD COUNT (AUTO) 10.4 K/uL (4.8-10.8)
--- NOTE | 2019-10-17 07:10 | NUR ---
REPORT GIVEN TO THE DAY SHIFT RN THAT DR JOINER HAS BEEN PAGED FOR THE HIGH GRADE FEVER BUT NO RESPONSE, PATIENT IS PLACED ON OXYGEN AT 2 LITERS NASAL CANNULA THE PATIENT WITH LOW SATURATION, PICTURE OF THE RIGHT LATERAL FOOT TAKEN AND ATTATCH TO THE CHART. DAY SHIFT RN WILL FOLLOW UP WITH THE CALL TO DR JOINER FOR THE ELEVATED TEMP, AND TACHYCARDIA,
--- NOTE | 2019-10-17 07:18 | NUR ---
CHEST XRAY RESULT NOT AVAILABLE YET.
--- NOTE | 2019-10-17 07:45 | NUR ---
Patient ambulated to bathroom with assist with generalized weakness ,sleepy, morning care given , bed changed , verbalized he wants to sleep, safety/fall precaution initiated.
[2019-10-17] MEDS: metFORMIN HCL 500 MG TABLET PO SCH ×2 (08:00→18:00)
--- NOTE | 2019-10-17 09:13 | NUR ---
Patient is drowsy/sleepy able to answer question , asked if he wants to eat now responded later i want to sleep, vitals sign stable , on IV fluid for hydration., safety/fall precaution initiated.
[2019-10-17] MEDS: buPROPion HCL 100 MG TABLET.SA PO SCH (10:27)
[2019-10-17] MEDS: PANTOPRAZOLE SODIUM 40 MG TAB PO SCH (10:28)
[2019-10-17] MEDS: DOCUSATE SODIUM 250 MG CAPSULE PO SCH (10:28)
[2019-10-17] MEDS: OSELTAMIVIR PHOSPHATE 75 MG CAPSULE PO SCH (10:28)
[2019-10-17] MEDS: LOSARTAN POTASSIUM 50 MG TABLET (COZAAR) PO SCH (10:28)
[2019-10-17] MEDS ORDERED: KCL 20 mEq in 100 mL (PREMIX) 100 ML IV ONE (10:30)
--- NOTE | 2019-10-17 10:56 | NUR ---
Consultation Paged Reason for Consultation: FEVER Was consult called: YES Person who was notified: DR AGUILAR Consulting Physician: DR AGUILAR Chin Strap Sewer Phone Number [phone] Ordering Physician: DR JOINER
[2019-10-17] MEDS ORDERED: POTASSIUM CHLORIDE 20 MEQ TAB.PRT.SR PO ONE (11:00)
[2019-10-17] MEDS ORDERED: KCL 20 mEq in NS 1000 mL 1,000 ML IV SCH (11:00)
[2019-10-17] MEDS ORDERED: VANCOMYCIN HCL 2,000 MG in NS 500 ML IV ONE (14:00)
--- NOTE | 2019-10-17 14:00 | NUR ---
Blood culture results Dr. Cristina informed regarding blood culture and vancomycin order by Dr. JOINER.
[2019-10-17] MEDS: HYDROcodone/ACETAMIN 5-325 MG TAB (NORCO/ VICODIN) PO PRN (14:06)
--- NOTE | 2019-10-17 14:07 | NUR ---
DC PLANNING Discussed dc plan w Dr Rosario in nsg station, pt needs to be transferred to [facility] for higher level of care. Needs Urgent Lymph Node Bx Interventional Radilogy for Dx possible Non-Hodgkins Lymphoma. Dr Rosario called & spoke with Dr Anaya, & Dr Anaya states he is accepting pt under him @ [facility]. Called & spoke w Iris @ [facility] center & informed of order & Dr Anaya accepting. Gave direct ph order for Dr Rosario & Dr Anaya. Faxed pt info requested. Called & spoke w [facility] @ [facility] & left msg informing or order & need for auth for hospital & ambulance. Received call back from [facility] no auth needed for transfer to [place] since it is a Higher Level or Care, they do not give auth. If MD to Md done & pt accepted then will give auth to [facility] once there. Do not need auth for ambulance either since higher level of care, contracted ambulance are: [facility], & [facility]. Called & informed Iris @ [place] per insurance no auth needed pt is PPO & Higher Level of care. States working on transfer. Spoke w pt @ bedside & agreeable w transfer. Pt's nurse aware & states Dr Anaya spoke w Pt's already & she is agreeable. [facility] Transfer Center, ph [phone] fax [phone] [facility] @ [facility]: [phone] fax [phone] Addendum: 10/17/19 at 1444 by Roxana Jackson RN CD ordered
--- NOTE | 2019-10-17 14:30 | NUR ---
Patient no urine output since morning, with minimal lower abdominal discomfort on palpation,per patient he has his problem 6 months ago , on hydration IV fluid , will informed MD. Addendum: 10/17/19 at 1506 by Dena Pal RN Able to urinate 300 ml tea colored urine , encouraged to increase oral fluid intake as tolerated , poor appetite today , didnt sleep well last night due to frequent bowel movement.
[2019-10-17] MEDS: VANCOMYCIN HCL 1,750 MG in NS 500 ML IV SCH ×2 (14:44→14:46)
[2019-10-17] MEDS ORDERED: TAMSULOSIN HCL 0.4 MG CAP PO ONE (14:45)
--- NOTE | 2019-10-17 15:17 | NUR ---
Discharge Planning Assisting Roxana ISRAEL Copied chart to place in nurses' station. [facility] placed on will call. Awaiting room number at [facility]. Dr Anaya accepting doctor
--- NOTE | 2019-10-17 15:34 | NUR ---
Paged Dr. Hand regarding lab that he ordered for clarification
--- NOTE | 2019-10-17 15:59 | NUR ---
DC PLANNING Received call back from [facility] [place], requesting auth for transfer. Again informed per Baltazar @ [facility] no auth needed pt PPO & going to higher level of care & MD to Md done. Pt accepted going to look for bed for pt.
--- NOTE | 2019-10-17 16:29 | NUR ---
DC PLANNING Called & left msg for [facility] Transfer center CM leaving for the day to call nsg station to give transfer information. Left direct nsg station#. Updated pt's nurse.
--- NOTE | 2019-10-17 17:08 | NUR ---
RENEE FROM [facility] CALLED TO GIVE RM INFO - [id number], [facility]. TO GIVE REPORT IS [phone]
--- NOTE | 2019-10-17 17:40 | NUR ---
Report given t SAVLATORE BETANCOURT with all the information, Jen informed. and agreed
--- NOTE | 2019-10-17 17:49 | NUR ---
CONFIRMED WITH [facility] FOR A 1997 [employer]ARN[employer] GOING TO [facility], [facility], RM [address]. TO GIVE REPORT IS [id number]. SPOKE TO DUSTY OF [facility]. CALLED RENEE OF TRANSFER CENTER OF PT'S DIRECT[employer] LEARNING SERVICES TIME.
--- NOTE | 2019-10-17 18:27 | NUR ---
Patient has poor appetite metformin po not given morning/evening Dr. Rosario informed
[2019-10-17] MEDS: HYDROcodone/ACETAMIN 10-325 MG TAB PO PRN (18:44)
--- NOTE | 2019-10-17 20:20 | NUR ---
[facility] FOR [facility] PATIENT TRANSFER [place] [facility] [place] , FAMILY HERE & UPDATED ALL BELONGING SENT WITH PATIENT ORDERS CARRIED OUT .
[2019-10-17] MEDS: LORazepam 1 MG TABLET PO PRN (20:30)
[2019-10-17] MEDS ORDERED: MIRTAZAPINE 15 MG TABLET PO SCH (21:00)
[2019-10-18] MEDS ORDERED: TAMSULOSIN HCL 0.4 MG CAP PO SCH (09:00)
[2019-10-18] MEDS ORDERED: POTASSIUM CHLORIDE 20 MEQ TAB.PRT.SR PO SCH (09:00)
== END 2019-10-17 20:20 | disposition short-term general hospital (02) | DRG 841 ==
LOC: SED 14:42 → SMU 17:26
PROVIDERS: ADMIT Internal Medicine; ATTEND Internal Medicine
DX: C85.90 Non-Hodgkin lymphoma, unspecified, unspecified site (principal); F33.2 Major depressive disorder, recurrent severe without psychotic features; E11.9 Type 2 diabetes mellitus without complications; I10 Essential (primary) hypertension; E66.9 Obesity, unspecified; K59.00 Constipation, unspecified; E78.00 Pure hypercholesterolemia, unspecified; E78.5 Hyperlipidemia, unspecified; F41.9 Anxiety disorder, unspecified; D72.810 Lymphocytopenia; I88.9 Nonspecific lymphadenitis, unspecified; Z68.29 Body mass index [BMI] 29.0-29.9, adult; Z79.899 Other long term (current) drug therapy; Z79.84 Long term (current) use of oral hypoglycemic drugs
CPT/HCPCS: 36415; 71046-TC; 74018; 80048; 80053; 82150-TC; 82962; 83605; 83615-TC; 83690-TC; 84153; 84443-TC; 85025; 85610-TC; 85651-TC; 85730-TC; 86480; 86635; 86710; 87040-TC; 87186-TC; 87899; 96372; 99285; G9035; J1885; J2405; J3370; J3480; J7040; J7120; Q9964; Q9967

== ENCOUNTER 2019-11-30 12:47 | Inpatient (IN) | payer BC ==
[~2019-11-30] VITALS: Ht 175.3 cm; Wt 85.3 kg
[2019-11-30 12:59] VITALS: BP_SYST 160
[2019-11-30] MEDS ORDERED: NACL 0.9% 1,000 ML IV ONE (13:13)
[2019-11-30 14:05] LABS: BILIRUBIN,URINE NEGATIVE (NEGATIVE); BLOOD, URINE NEGATIVE (NEGATIVE); COLOR,URINE YELLOW (YELLOW); GLUCOSE,URINE NEGATIVE (NEGATIVE); KETONES,URINE NEGATIVE (NEGATIVE); LEUKOCYTE ESTERASE ,URINE NEGATIVE (NEGATIVE); NITRITE, URINE NEGATIVE (NEGATIVE); PROTEIN URINE NEGATIVE (NEGATIVE); UROBILINOGEN,URINE 0.2 (0.2-1.0)
[2019-11-30 14:11] LABS: CLARITY/URINE SLIGHTLY HAZY (CLEAR)
[2019-11-30 14:25] LABS: BASOPHILS % (AUTO) 0.3 % (0.0-2.0); EOSINOPHILS # (AUTO) 0.4 K/uL (0.0-0.4); EOSINOPHILS % (AUTO) 6.2 % (0.0-4.0); HEMATOCRIT 37.1 % (36-54); HEMOGLOBIN 12.7 g/dL (14.0-18.0); LYMPHOCYTES # (AUTO) 1.6 K/uL (1.0-5.5); LYMPHOCYTES % (AUTO) 26.1 % (20.5-51.5); MEAN CORPUSCULAR HEMOGLOBIN 30 pg (27-31); MEAN CORPUSCULAR HGB CONC 34 % (32-36); MEAN CORPUSCULAR VOLUME 86 fL (79.0-98.0); MONOCYTES # (AUTO) 0.4 K/uL (0.0-1.0); NEUTROPHILS # (AUTO) 3.7 K/uL (1.8-7.7); NEUTROPHILS % (AUTO) 61.4 % (40.0-70.0); PLATELET COUNT (AUTO) 242 K/uL (130-430); RED BLOOD CELL COUNT(AUTO) 4.31 MIL/uL (4.2-6.2); RED CELL DISTRIBUTION WIDTH 14.3 % (9.0-15.0)
[2019-11-30 14:32] LABS: CREATININE 0.85 mg/dL (0.55-1.30); POTASSIUM 3.3 mmol/L (3.5-5.1)
[2019-11-30 14:34] LABS: INR 1.1 (0.80-1.20); PROTHROMBIN TIME 10.9 SECS (9.5-12.5)
[2019-11-30 14:50] LABS: ALBUMIN 3.3 g/dL (3.4-4.8); TOTAL BILIRUBIN 0.5 mg/dL (0.0-1.0)
[2019-11-30] MEDS ORDERED: SODIUM PHOSPHATE,MONO-DIBASIC 133 ML ENEMA RC ONE (15:00)
[2019-11-30] MEDS ORDERED: LACTULOSE 20 GM/30 ML UDC PO ONE (16:45)
[2019-11-30 17:35] VITALS: BP_SYST 148
[2019-11-30] MEDS ORDERED: HYDR-4272 PO (17:49)
[2019-11-30] MEDS ORDERED: BISACODYL 10 MG/SUPPOSITORY RC PRN (19:15)
[2019-11-30] MEDS ORDERED: LORazepam 1 MG TABLET PO PRN (19:15)
[2019-11-30] MEDS ORDERED: DEXTROSE 50% JECT 50 ML DISP.SYRIN IVP PRN (19:15)
[2019-11-30] MEDS ORDERED: cloNIDine HCL 0.1 MG TABLET PO SCH (19:15)
[2019-11-30] MEDS ORDERED: POTASSIUM CHLORIDE 20 MEQ TAB.PRT.SR PO ONE (19:15)
[2019-11-30] MEDS ORDERED: GOLYTELY / COLYTE SOLUTION 4 LITERS PO ONE (19:15)
[2019-11-30] MEDS ORDERED: LR 500 ML IV ONE (19:30)
[2019-11-30] MEDS: HYDROcodone/ACETAMIN 5-325 MG TAB (NORCO/ VICODIN) PO PRN (19:45)
[2019-11-30] MEDS: TAMSULOSIN HCL 0.4 MG CAP PO SCH (20:41)
[2019-11-30] MEDS: DOCUSATE SODIUM 250 MG CAPSULE PO SCH (20:41)
[2019-11-30] MEDS: MIRTAZAPINE 15 MG TABLET PO SCH (20:42)
[2019-11-30] MEDS: amLODIPine BESYLATE 10 MG TABLET PO SCH (20:42)
[2019-11-30] MEDS ORDERED: GOLYTELY / COLYTE SOLUTION 4 LITERS ONE (20:51)
[2019-11-30] MEDS ORDERED: MIRTAZAPINE 15 MG TABLET PO SCH (21:00)
[2019-11-30] MEDS: VENLAFAXINE HCL 50 MG TABLET PO SCH (21:00)
[2019-11-30] MEDS: INSULIN REGULAR, HUMAN 100 UNITS/ML, 10 ML VIAL (humuLIN R) SUBCUT PRN (22:09)
[2019-12-01 00:21] VITALS: BP_SYST 156
[2019-12-01] MEDS: MORPHINE SULFATE 30 MG Immediate Release TABLET PO PRN ×2 (00:52→08:55)
[2019-12-01] MEDS: HYDROcodone/ACETAMIN 5-325 MG TAB (NORCO/ VICODIN) PO PRN ×2 (02:58→21:27)
[2019-12-01 06:20] LABS: BASOPHILS % (AUTO) 0.4 % (0.0-2.0); CALCIUM 8.8 mg/dL (8.4-11.0); CREATININE 0.88 mg/dL (0.55-1.30); EOSINOPHILS # (AUTO) 0.4 K/uL (0.0-0.4); EOSINOPHILS % (AUTO) 6.1 % (0.0-4.0); HEMATOCRIT 35.1 % (36-54); LYMPHOCYTES # (AUTO) 1.8 K/uL (1.0-5.5); LYMPHOCYTES % (AUTO) 31.5 % (20.5-51.5); MEAN CORPUSCULAR HEMOGLOBIN 30 pg (27-31); MEAN CORPUSCULAR HGB CONC 34 % (32-36); MEAN CORPUSCULAR VOLUME 87 fL (79.0-98.0); MONOCYTES # (AUTO) 0.4 K/uL (0.0-1.0); MONOCYTES % (AUTO) 7.5 % (1.7-9.3); NEUTROPHILS # (AUTO) 3.1 K/uL (1.8-7.7); NEUTROPHILS % (AUTO) 54.5 % (40.0-70.0); PLATELET COUNT (AUTO) 220 K/uL (130-430); POTASSIUM 3.5 mmol/L (3.5-5.1); RED BLOOD CELL COUNT(AUTO) 4.05 MIL/uL (4.2-6.2); RED CELL DISTRIBUTION WIDTH 14.2 % (9.0-15.0); WHITE BLOOD COUNT (AUTO) 5.7 K/uL (4.8-10.8)
[2019-12-01 08:44] VITALS: BP_SYST 172
[2019-12-01] MEDS: TAMSULOSIN HCL 0.4 MG CAP PO SCH ×2 (08:53→20:39)
[2019-12-01] MEDS: DOCUSATE SODIUM 250 MG CAPSULE PO SCH ×2 (08:53→20:38)
[2019-12-01] MEDS: metFORMIN HCL 500 MG TABLET PO SCH ×2 (08:53→17:10)
[2019-12-01] MEDS: PANTOPRAZOLE SODIUM 40 MG TAB PO SCH (08:55)
[2019-12-01] MEDS: LOSARTAN POTASSIUM 50 MG TABLET (COZAAR) PO SCH (08:55)
[2019-12-01] MEDS: cloNIDine HCL 0.1 MG TABLET PO PRN (08:57)
[2019-12-01] MEDS: VENLAFAXINE HCL 50 MG TABLET PO SCH ×3 (08:58→20:39)
[2019-12-01 10:28] VITALS: BP_SYST 116
[2019-12-01] MEDS: ONDANSETRON HCL 4 MG/2 ML VIAL IVP PRN ×2 (11:11→21:23)
[2019-12-01] MEDS: VANCOMYCIN HCL 1,500 MG in NS 250 ML IV SCH (14:42)
[2019-12-01 16:40] VITALS: BP_SYST 111; BP_SYST 131
[2019-12-01] MEDS ORDERED: MAGNESIUM CITRATE 300 ML ORAL SOLUTION PO ONE (17:00)
[2019-12-01] MEDS: amLODIPine BESYLATE 10 MG TABLET PO SCH (20:38)
[2019-12-01] MEDS: MIRTAZAPINE 15 MG TABLET PO SCH (20:39)
[2019-12-02 00:06] VITALS: BP_SYST 135
[2019-12-02] MEDS: VANCOMYCIN HCL 1,500 MG in NS 250 ML IV SCH (02:50)
[2019-12-02] MEDS: metFORMIN HCL 500 MG TABLET PO SCH ×2 (08:00→17:07)
[2019-12-02] MEDS: LOSARTAN POTASSIUM 50 MG TABLET (COZAAR) PO SCH (08:42)
[2019-12-02] MEDS: HYDROcodone/ACETAMIN 5-325 MG TAB (NORCO/ VICODIN) PO PRN ×2 (08:43→18:37)
[2019-12-02] MEDS: TAMSULOSIN HCL 0.4 MG CAP PO SCH ×2 (08:43→21:32)
[2019-12-02] MEDS: VENLAFAXINE HCL 50 MG TABLET PO SCH ×3 (08:47→21:34)
[2019-12-02] MEDS: DOCUSATE SODIUM 250 MG CAPSULE PO SCH ×2 (09:52→21:32)
[2019-12-02] MEDS: PANTOPRAZOLE SODIUM 40 MG TAB PO SCH (09:52)
[2019-12-02 12:00] VITALS: BP_SYST 139
[2019-12-02] MEDS: NAFCILLIN SODIUM 2 GM in NS 100 ML IV SCH ×2 (13:05→21:31)
[2019-12-02] MEDS: MORPHINE SULFATE 30 MG Immediate Release TABLET PO PRN ×2 (14:55→16:29)
[2019-12-02] MEDS: LACTULOSE 20 GM/30 ML UDC PO PRN (15:01)
[2019-12-02] MEDS ORDERED: BISACODYL 5 MG TABLET.DR (DULCOLAX) PO ONE (16:15)
[2019-12-02] MEDS ORDERED: SODIUM PHOSPHATE,MONO-DIBASIC 133 ML ENEMA RC ONE (16:30)
[2019-12-02 18:44] VITALS: BP_SYST 127
[2019-12-02 19:52] VITALS: BP_SYST 140
[2019-12-02] MEDS: MIRTAZAPINE 15 MG TABLET PO SCH (21:32)
[2019-12-02] MEDS: amLODIPine BESYLATE 10 MG TABLET PO SCH (21:34)
[2019-12-03 00:31] VITALS: BP_SYST 159
[2019-12-03] MEDS: MORPHINE SULFATE 30 MG Immediate Release TABLET PO PRN ×2 (00:42→18:44)
[2019-12-03] MEDS: NAFCILLIN SODIUM 2 GM in NS 100 ML IV SCH ×4 (02:49→20:42)
[2019-12-03] MEDS: metFORMIN HCL 500 MG TABLET PO SCH ×2 (08:00→17:58)
[2019-12-03] MEDS: LACTULOSE 20 GM/30 ML UDC PO PRN ×2 (08:48→13:46)
[2019-12-03] MEDS: DOCUSATE SODIUM 250 MG CAPSULE PO SCH ×2 (08:49→20:37)
[2019-12-03] MEDS: PANTOPRAZOLE SODIUM 40 MG TAB PO SCH (08:49)
[2019-12-03] MEDS: TAMSULOSIN HCL 0.4 MG CAP PO SCH ×2 (08:49→20:38)
[2019-12-03] MEDS: LOSARTAN POTASSIUM 50 MG TABLET (COZAAR) PO SCH (08:49)
[2019-12-03] MEDS: VENLAFAXINE HCL 50 MG TABLET PO SCH ×3 (08:49→20:41)
[2019-12-03 12:00] VITALS: BP_SYST 109
[2019-12-03] MEDS: HYDROcodone/ACETAMIN 5-325 MG TAB (NORCO/ VICODIN) PO PRN ×2 (15:03→20:38)
[2019-12-03] MEDS ORDERED: MAGNESIUM CITRATE 300 ML ORAL SOLUTION PO ONE ×2 (15:45→16:00)
[2019-12-03 16:05] VITALS: BP_SYST 124
[2019-12-03] MEDS ORDERED: METHYLNALTREXONE SUBCUT ONE (17:15)
[2019-12-03 20:00] VITALS: BP_SYST 115
[2019-12-03] MEDS: amLODIPine BESYLATE 10 MG TABLET PO SCH (20:38)
[2019-12-03] MEDS: MIRTAZAPINE 15 MG TABLET PO SCH (20:38)
[2019-12-03] MEDS: MORPHINE 4 MG/ML INJ. SYRINGE IVP PRN (23:06)
[2019-12-04] MEDS: NAFCILLIN SODIUM 2 GM in NS 100 ML IV SCH ×4 (02:05→21:04)
[2019-12-04] MEDS: MORPHINE 4 MG/ML INJ. SYRINGE IVP PRN ×2 (05:05→14:05)
[2019-12-04 08:00] VITALS: BP_SYST 145
[2019-12-04] MEDS: metFORMIN HCL 500 MG TABLET PO SCH ×2 (08:22→17:27)
[2019-12-04] MEDS: VENLAFAXINE HCL 50 MG TABLET PO SCH ×3 (08:23→21:07)
[2019-12-04] MEDS: LOSARTAN POTASSIUM 50 MG TABLET (COZAAR) PO SCH (08:23)
[2019-12-04] MEDS: DOCUSATE SODIUM 250 MG CAPSULE PO SCH ×2 (08:23→21:06)
[2019-12-04] MEDS: TAMSULOSIN HCL 0.4 MG CAP PO SCH ×2 (08:23→21:05)
[2019-12-04] MEDS: PANTOPRAZOLE SODIUM 40 MG TAB PO SCH (08:23)
[2019-12-04] MEDS ORDERED: MINERAL OIL 133 ML ENEMA RC ONE (09:30)
[2019-12-04] MEDS ORDERED: MINERAL OIL 30 ML UDC PO ONE (09:45)
[2019-12-04] MEDS ORDERED: LUBIPROSTONE 24 MCG CAPSULE PO ONE (09:45)
[2019-12-04] MEDS ORDERED: POLYETHYLENE GLYCOL 3350, 17 GM/ POWD.PACK PO ONE (09:45)
[2019-12-04 12:15] VITALS: BP_SYST 103
[2019-12-04 16:20] VITALS: BP_SYST 110
[2019-12-04] MEDS: MORPHINE SULFATE 30 MG Immediate Release TABLET PO PRN (17:28)
[2019-12-04 20:00] VITALS: BP_SYST 135
[2019-12-04] MEDS: MIRTAZAPINE 15 MG TABLET PO SCH (21:05)
[2019-12-04] MEDS: LUBIPROSTONE 24 MCG CAPSULE PO SCH (21:05)
[2019-12-04] MEDS: POLYETHYLENE GLYCOL 3350, 17 GM/ POWD.PACK PO SCH (21:05)
[2019-12-04] MEDS: amLODIPine BESYLATE 10 MG TABLET PO SCH (21:06)
[2019-12-04 23:34] VITALS: BP_SYST 155
[2019-12-05] MEDS: NAFCILLIN SODIUM 2 GM in NS 100 ML IV SCH ×4 (02:05→20:57)
[2019-12-05] MEDS: INSULIN REGULAR, HUMAN 100 UNITS/ML, 10 ML VIAL (humuLIN R) SUBCUT PRN (06:21)
[2019-12-05 06:51] LABS: CALCIUM 8.4 mg/dL (8.4-11.0); CREATININE 1.08 mg/dL (0.55-1.30)
[2019-12-05 07:07] LABS: POTASSIUM 2.9 mmol/L (3.5-5.1)
[2019-12-05 08:00] VITALS: BP_SYST 155; BP_SYST 157
[2019-12-05] MEDS: MINERAL OIL 30 ML UDC PO SCH (09:58)
[2019-12-05] MEDS: LUBIPROSTONE 24 MCG CAPSULE PO SCH ×2 (09:59→20:56)
[2019-12-05] MEDS: POLYETHYLENE GLYCOL 3350, 17 GM/ POWD.PACK PO SCH ×2 (09:59→20:55)
[2019-12-05] MEDS: TAMSULOSIN HCL 0.4 MG CAP PO SCH ×2 (09:59→21:51)
[2019-12-05] MEDS: PANTOPRAZOLE SODIUM 40 MG TAB PO SCH (10:01)
[2019-12-05] MEDS: VENLAFAXINE HCL 50 MG TABLET PO SCH ×3 (10:01→21:51)
[2019-12-05] MEDS: LOSARTAN POTASSIUM 50 MG TABLET (COZAAR) PO SCH (10:01)
[2019-12-05] MEDS: DOCUSATE SODIUM 250 MG CAPSULE PO SCH ×2 (10:01→20:56)
[2019-12-05] MEDS: metFORMIN HCL 500 MG TABLET PO SCH ×2 (10:02→17:46)
[2019-12-05] MEDS ORDERED: POTASSIUM CHLORIDE 20 MEQ TAB.PRT.SR PO ONE (10:45)
[2019-12-05 11:57] VITALS: BP_SYST 157
[2019-12-05] MEDS ORDERED: MULTIVITS,CA,MINERALS/IRON/FA 1 TABLET PO ONE (14:00)
[2019-12-05] MEDS ORDERED: CHOLECALCIFEROL (VITAMIN D3) 2,000 UNIT TABLET PO ONE (14:00)
[2019-12-05 16:06] VITALS: BP_SYST 152
[2019-12-05] MEDS: METOCLOPRAMIDE HCL 10 MG/2 ML VIAL IVP ONE ×2 (16:28→16:40)
[2019-12-05] MEDS: POTASSIUM CHLORIDE 20 MEQ TAB.PRT.SR PO ONE ×2 (16:29→16:40)
[2019-12-05] MEDS: amLODIPine BESYLATE 10 MG TABLET PO SCH (20:55)
[2019-12-05] MEDS: POTASSIUM CHLORIDE 20 MEQ TAB.PRT.SR PO SCH (20:56)
[2019-12-05] MEDS: MIRTAZAPINE 15 MG TABLET PO SCH (20:56)
[2019-12-05] MEDS: METOCLOPRAMIDE HCL 10 MG/2 ML VIAL IVP SCH (21:52)
[2019-12-06] MEDS: HYDROcodone/ACETAMIN 5-325 MG TAB (NORCO/ VICODIN) PO PRN (00:16)
[2019-12-06 00:53] VITALS: BP_SYST 151
[2019-12-06] MEDS: NAFCILLIN SODIUM 2 GM in NS 100 ML IV SCH ×4 (03:25→21:55)
[2019-12-06] MEDS: METOCLOPRAMIDE HCL 10 MG/2 ML VIAL IVP SCH ×3 (06:10→21:49)
[2019-12-06 07:12] LABS: BASOPHILS % (AUTO) 0.5 % (0.0-2.0); EOSINOPHILS # (AUTO) 0.3 K/uL (0.0-0.4); EOSINOPHILS % (AUTO) 6.7 % (0.0-4.0); HEMATOCRIT 31.8 % (36-54); HEMOGLOBIN 10.9 g/dL (14.0-18.0); LYMPHOCYTES # (AUTO) 1.8 K/uL (1.0-5.5); MEAN CORPUSCULAR HEMOGLOBIN 30 pg (27-31); MEAN CORPUSCULAR HGB CONC 34 % (32-36); MEAN CORPUSCULAR VOLUME 87 fL (79.0-98.0); MONOCYTES # (AUTO) 0.5 K/uL (0.0-1.0); MONOCYTES % (AUTO) 9.2 % (1.7-9.3); NEUTROPHILS # (AUTO) 2.3 K/uL (1.8-7.7); NEUTROPHILS % (AUTO) 46.6 % (40.0-70.0); PLATELET COUNT (AUTO) 193 K/uL (130-430); RED BLOOD CELL COUNT(AUTO) 3.67 MIL/uL (4.2-6.2); RED CELL DISTRIBUTION WIDTH 14.1 % (9.0-15.0)
[2019-12-06 07:32] LABS: CALCIUM 8.3 mg/dL (8.4-11.0); POTASSIUM 3.1 mmol/L (3.5-5.1)
[2019-12-06 08:00] VITALS: BP_SYST 153
[2019-12-06] MEDS: metFORMIN HCL 500 MG TABLET PO SCH ×2 (08:19→18:00)
[2019-12-06] MEDS: CHOLECALCIFEROL (VITAMIN D3) 2,000 UNIT TABLET PO SCH (08:44)
[2019-12-06] MEDS: DOCUSATE SODIUM 250 MG CAPSULE PO SCH ×2 (08:44→21:46)
[2019-12-06] MEDS: LOSARTAN POTASSIUM 50 MG TABLET (COZAAR) PO SCH (08:45)
[2019-12-06] MEDS: MULTIVITS,CA,MINERALS/IRON/FA 1 TABLET PO SCH (09:00)
[2019-12-06] MEDS: POLYETHYLENE GLYCOL 3350, 17 GM/ POWD.PACK PO SCH ×2 (09:00→21:48)
[2019-12-06] MEDS: MINERAL OIL 30 ML UDC PO SCH (09:00)
[2019-12-06] MEDS: PANTOPRAZOLE SODIUM 40 MG TAB PO SCH (09:00)
[2019-12-06] MEDS: VENLAFAXINE HCL 50 MG TABLET PO SCH ×3 (09:20→21:00)
[2019-12-06] MEDS: LUBIPROSTONE 24 MCG CAPSULE PO SCH ×2 (09:20→21:45)
[2019-12-06] MEDS: POTASSIUM CHLORIDE 20 MEQ TAB.PRT.SR PO SCH ×2 (09:20→21:00)
[2019-12-06] MEDS: TAMSULOSIN HCL 0.4 MG CAP PO SCH ×2 (09:20→21:47)
[2019-12-06 10:51] VITALS: BP_SYST 156
[2019-12-06] MEDS ORDERED: POTASSIUM CHLORIDE 20 MEQ TAB.PRT.SR PO ONE (12:30)
[2019-12-06 15:58] VITALS: BP_SYST 117
[2019-12-06 19:50] VITALS: BP_SYST 142
[2019-12-06] MEDS ORDERED: MIRTAZAPINE 15 MG TABLET PO SCH (21:00)
[2019-12-06] MEDS: MIRTAZAPINE 15 MG TABLET PO SCH (21:46)
[2019-12-06] MEDS: amLODIPine BESYLATE 10 MG TABLET PO SCH (21:47)
[2019-12-07] MEDS: cloNIDine HCL 0.1 MG TABLET PO PRN (00:10)
[2019-12-07 00:29] VITALS: BP_SYST 118
[2019-12-07 00:31] VITALS: BP_SYST 161
[2019-12-07] MEDS: NAFCILLIN SODIUM 2 GM in NS 100 ML IV SCH ×3 (01:18→13:56)
[2019-12-07] MEDS: METOCLOPRAMIDE HCL 10 MG/2 ML VIAL IVP SCH ×2 (05:05→13:57)
[2019-12-07 06:41] LABS: BASOPHILS % (AUTO) 0.4 % (0.0-2.0); EOSINOPHILS # (AUTO) 0.3 K/uL (0.0-0.4); EOSINOPHILS % (AUTO) 5.1 % (0.0-4.0); HEMATOCRIT 35.3 % (36-54); HEMOGLOBIN 12.1 g/dL (14.0-18.0); LYMPHOCYTES # (AUTO) 1.9 K/uL (1.0-5.5); LYMPHOCYTES % (AUTO) 35.9 % (20.5-51.5); MEAN CORPUSCULAR HEMOGLOBIN 30 pg (27-31); MEAN CORPUSCULAR HGB CONC 34 % (32-36); MEAN CORPUSCULAR VOLUME 87 fL (79.0-98.0); MONOCYTES # (AUTO) 0.5 K/uL (0.0-1.0); MONOCYTES % (AUTO) 9.5 % (1.7-9.3); NEUTROPHILS # (AUTO) 2.6 K/uL (1.8-7.7); NEUTROPHILS % (AUTO) 49.1 % (40.0-70.0); PLATELET COUNT (AUTO) 236 K/uL (130-430); RED BLOOD CELL COUNT(AUTO) 4.08 MIL/uL (4.2-6.2); RED CELL DISTRIBUTION WIDTH 14.2 % (9.0-15.0); WHITE BLOOD COUNT (AUTO) 5.4 K/uL (4.8-10.8)
[2019-12-07 06:58] LABS: CALCIUM 8.5 mg/dL (8.4-11.0); CREATININE 0.98 mg/dL (0.55-1.30); POTASSIUM 3.3 mmol/L (3.5-5.1)
[2019-12-07] MEDS: metFORMIN HCL 500 MG TABLET PO SCH ×2 (08:00→09:51)
[2019-12-07 08:16] VITALS: BP_SYST 145
[2019-12-07] MEDS: MULTIVITS,CA,MINERALS/IRON/FA 1 TABLET PO SCH ×3 (09:00→13:25)
[2019-12-07] MEDS: POLYETHYLENE GLYCOL 3350, 17 GM/ POWD.PACK PO SCH ×3 (09:00→13:25)
[2019-12-07] MEDS: MINERAL OIL 30 ML UDC PO SCH ×3 (09:00→13:25)
[2019-12-07] MEDS: DOCUSATE SODIUM 250 MG CAPSULE PO SCH ×3 (09:00→13:25)
[2019-12-07] MEDS: VENLAFAXINE HCL 50 MG TABLET PO SCH ×2 (09:00→13:25)
[2019-12-07] MEDS: TAMSULOSIN HCL 0.4 MG CAP PO SCH (09:52)
[2019-12-07] MEDS: POTASSIUM CHLORIDE 20 MEQ TAB.PRT.SR PO SCH (09:52)
[2019-12-07] MEDS: LOSARTAN POTASSIUM 50 MG TABLET (COZAAR) PO SCH (09:52)
[2019-12-07] MEDS: PANTOPRAZOLE SODIUM 40 MG TAB PO SCH (09:52)
[2019-12-07] MEDS: CHOLECALCIFEROL (VITAMIN D3) 2,000 UNIT TABLET PO SCH (09:52)
[2019-12-07] MEDS: LUBIPROSTONE 24 MCG CAPSULE PO SCH (09:52)
[2019-12-07 12:35] VITALS: BP_SYST 150
[2019-12-07] MEDS ORDERED: REM15 PO (13:22)
[2019-12-07] MEDS ORDERED: POTA20TA83 PO (13:22)
[2019-12-07] MEDS ORDERED: DOXY100C PO (13:22)
[2019-12-07] MEDS ORDERED: FOLI100T PO (13:32)
[2019-12-07] MEDS ORDERED: VITD2000 PO (13:32)
[2019-12-07] MEDS ORDERED: TAMS0.4C96 PO (13:38)
[2019-12-07] MEDS ORDERED: DOCU250C71 PO (13:38)
[2019-12-07] MEDS ORDERED: POLY17PO4 PO (13:38)
[2019-12-07] MEDS ORDERED: BISA10SU61 RC (13:38)
[2019-12-07 14:18] VITALS: BP_SYST 150
== END 2019-12-07 15:50 | disposition home or self-care (01) | DRG 872 ==
LOC: SED 12:47 → SMU 16:37
PROVIDERS: ADMIT Internal Medicine; ATTEND Internal Medicine
DX: A41.01 Sepsis due to Methicillin susceptible Staphylococcus aureus (principal); E44.1 Mild protein-calorie malnutrition; C77.2 Secondary and unspecified malignant neoplasm of intra-abdominal lymph nodes; E11.9 Type 2 diabetes mellitus without complications; E78.5 Hyperlipidemia, unspecified; G89.4 Chronic pain syndrome; I10 Essential (primary) hypertension; K59.03 Drug induced constipation; T40.605A Adverse effect of unspecified narcotics, initial encounter; F32.9 Major depressive disorder, single episode, unspecified; F41.9 Anxiety disorder, unspecified; E78.00 Pure hypercholesterolemia, unspecified; E87.6 Hypokalemia; C61 Malignant neoplasm of prostate; D64.9 Anemia, unspecified; Y92.89 Other specified places as the place of occurrence of the external cause; Z68.27 Body mass index [BMI] 27.0-27.9, adult; Z79.899 Other long term (current) drug therapy
CPT/HCPCS: 36415; 71045; 74018; 80048; 80053; 81003; 82150-TC; 82550-TC; 82962; 83605; 83690-TC; 83735-TC; 84153; 84484; 85025; 85044-TC; 85610-TC; 85651-TC; 85730-TC; 87040-TC; 87081; 87186-TC; 93005; 99285; J1815; J2270; J2274; J2405; J2765; J3370; J3490; J7030; J7050; J7120

== ENCOUNTER 2020-02-23 02:02 | Inpatient (IN) | payer BC, SELFPAY ==
[~2020-02-23] VITALS: Ht 175.3 cm; Wt 83.0 kg
[2020-02-23 02:02] VITALS: BP_SYST 160
[~2020-02-23 02:02] MED LIST changes: +BISA10SU61 RC; +DOCU250C71 PO; +DOXY100C PO; +FOLI100T PO; +HYDR-4272 PO; +POLY17PO4 PO; +POTA20TA83 PO; +REM15 PO; +TAMS0.4C96 PO; +VITD2000 PO
[2020-02-23 06:06] LABS: BASOPHILS % (AUTO) 0.5 % (0.0-2.0); EOSINOPHILS # (AUTO) 0.5 K/uL (0.0-0.4); EOSINOPHILS % (AUTO) 7.5 % (0.0-4.0); HEMATOCRIT 33.5 % (36-54); HEMOGLOBIN 11.5 g/dL (14.0-18.0); LYMPHOCYTES # (AUTO) 1.6 K/uL (1.0-5.5); LYMPHOCYTES % (AUTO) 25.6 % (20.5-51.5); MEAN CORPUSCULAR HEMOGLOBIN 29 pg (27-31); MEAN CORPUSCULAR HGB CONC 34 % (32-36); MEAN CORPUSCULAR VOLUME 85 fL (79.0-98.0); MONOCYTES # (AUTO) 0.5 K/uL (0.0-1.0); MONOCYTES % (AUTO) 7.9 % (1.7-9.3); NEUTROPHILS # (AUTO) 3.5 K/uL (1.8-7.7); NEUTROPHILS % (AUTO) 58.5 % (40.0-70.0); PLATELET COUNT (AUTO) 241 K/uL (130-430); RED BLOOD CELL COUNT(AUTO) 3.94 MIL/uL (4.2-6.2); RED CELL DISTRIBUTION WIDTH 13.8 % (9.0-15.0); WHITE BLOOD COUNT (AUTO) 6.1 K/uL (4.8-10.8)
[2020-02-23 06:17] LABS: CALCIUM 9.7 mg/dL (8.4-11.0); CREATININE 0.96 mg/dL (0.55-1.30); POTASSIUM 3.5 mmol/L (3.5-5.1)
[2020-02-23 06:19] LABS: INR 1.1 (0.80-1.20); PROTHROMBIN TIME 11.4 SECS (9.5-12.5)
[2020-02-23 06:22] LABS: ALBUMIN 3.3 g/dL (3.4-4.8); TOTAL BILIRUBIN 0.7 mg/dL (0.0-1.0)
[2020-02-23] MEDS ORDERED: MORPHINE 4 MG/ML INJ. SYRINGE IVP ONE (07:45)
[2020-02-23] MEDS ORDERED: IOHEXOL 350 mgI/mL, 150 ML INFUS..BTL IV ONE (08:12)
[2020-02-23] MEDS ORDERED: HYDROcodone/ACETAMIN 10-325 MG TAB PO ONE (08:30)
[2020-02-23] MEDS ORDERED: fentaNYL CITRATE/PF 100 MCG/2 ML AMP IVP ONE ×3 (09:15→11:45)
[2020-02-23] MEDS ORDERED: ONDANSETRON HCL 4 MG/2 ML VIAL IVP PRN (12:00)
[2020-02-23] MEDS: HYDROmorphone 1 MG INJ. 1 MG/ML AMPUL IVP PRN ×3 (13:15→21:34)
[2020-02-23] MEDS ORDERED: HYDROmorphone 1 MG INJ. 1 MG/ML AMPUL ONE (13:17)
[2020-02-23] MEDS ORDERED: KETOROLAC TROMETHAMINE 30 MG VIAL IVP ONE (14:30)
[2020-02-23 15:11] VITALS: BP_SYST 153
[2020-02-23 16:00] VITALS: BP_SYST 153
[2020-02-23] MEDS ORDERED: LORazepam 2 MG/ML VIAL IVP ONE (16:15)
[2020-02-23] MEDS ORDERED: HYDROmorphone 1 MG INJ. 1 MG/ML AMPUL IVP PRN (16:15)
[2020-02-23] MEDS ORDERED: HYDROmorphone 2 MG TAB PO PRN (17:00)
[2020-02-23] MEDS ORDERED: IBUPROFEN 800 MG TABLET PO PRN (17:00)
[2020-02-23] MEDS ORDERED: NALOXONE HCL 0.4 MG/ML AMP (NARCAN) IVP PRN ×2 (17:00)
[2020-02-23 17:19] VITALS: BP_SYST 136
[2020-02-23] MEDS ORDERED: LACTULOSE 20 GM/30 ML UDC PO ONE (17:30)
[2020-02-23] MEDS ORDERED: cloNIDine HCL 0.1 MG TABLET PO SCH (17:30)
[2020-02-23] MEDS ORDERED: BISACODYL 10 MG/SUPPOSITORY RC PRN (17:30)
[2020-02-23] MEDS ORDERED: TEMAZEPAM 15 MG CAPSULE PO PRN (17:45)
[2020-02-23] MEDS ORDERED: INSULIN REGULAR, HUMAN 100 UNITS/ML, 10 ML VIAL (humuLIN R) SUBCUT PRN (18:00)
[2020-02-23] MEDS ORDERED: metFORMIN HCL 500 MG TABLET PO SCH (18:00)
[2020-02-23] MEDS ORDERED: DEXTROSE 50% JECT 50 ML DISP.SYRIN IVP PRN (18:00)
[2020-02-23 19:45] VITALS: BP_SYST 184
[2020-02-23] MEDS: VENLAFAXINE HCL 50 MG TABLET PO SCH (21:00)
[2020-02-23] MEDS ORDERED: MIRTAZAPINE 15 MG TABLET PO SCH (21:00)
[2020-02-23] MEDS ORDERED: DOCUSATE SODIUM 250 MG CAPSULE PO SCH (21:00)
[2020-02-23] MEDS: TAMSULOSIN HCL 0.4 MG CAP PO SCH (21:42)
[2020-02-23] MEDS: DOCUSATE SODIUM 250 MG CAPSULE PO SCH (21:42)
[2020-02-23] MEDS: POTASSIUM CHLORIDE 20 MEQ TAB.PRT.SR PO SCH (21:42)
[2020-02-23] MEDS: POLYETHYLENE GLYCOL 3350, 17 GM/ POWD.PACK PO SCH (21:42)
[2020-02-23] MEDS: LACTULOSE 20 GM/30 ML UDC PO SCH (21:43)
[2020-02-23] MEDS: amLODIPine BESYLATE 10 MG TABLET PO SCH (21:43)
[2020-02-23] MEDS: LR 1,000 ML IV SCH (21:44)
[2020-02-23] MEDS: ENOXAPARIN SODIUM 40 MG/0.4 ML SYRINGE SUBCUT SCH (21:55)
[2020-02-23] MEDS ORDERED: cloNIDine HCL 0.2 MG TABLET PO PRN (22:30)
[2020-02-23] MEDS: LORazepam 1 MG TABLET PO PRN (22:46)
[2020-02-24] VITALS: BP_SYST 154
[2020-02-24] MEDS: HYDROcodone/ACETAMIN 10-325 MG TAB PO PRN ×2 (00:07→15:09)
[2020-02-24] MEDS: HYDROmorphone 1 MG INJ. 1 MG/ML AMPUL IVP PRN ×5 (01:20→16:16)
[2020-02-24 08:00] VITALS: BP_SYST 154
[2020-02-24] MEDS: LR 1,000 ML IV SCH (08:00)
[2020-02-24] MEDS: LACTULOSE 20 GM/30 ML UDC PO SCH ×2 (08:34→20:22)
[2020-02-24] MEDS: POLYETHYLENE GLYCOL 3350, 17 GM/ POWD.PACK PO SCH ×2 (08:35→20:22)
[2020-02-24] MEDS: TAMSULOSIN HCL 0.4 MG CAP PO SCH ×2 (08:35→20:23)
[2020-02-24] MEDS: POTASSIUM CHLORIDE 20 MEQ TAB.PRT.SR PO SCH ×2 (08:35→20:22)
[2020-02-24] MEDS: MULTIVITS,CA,MINERALS/IRON/FA 1 TABLET PO SCH (08:35)
[2020-02-24] MEDS: LOSARTAN POTASSIUM 50 MG TABLET (COZAAR) PO SCH (08:35)
[2020-02-24] MEDS: DOCUSATE SODIUM 250 MG CAPSULE PO SCH ×2 (08:35→20:22)
[2020-02-24] MEDS: CHOLECALCIFEROL (VITAMIN D3) 2,000 UNIT TABLET PO SCH (08:35)
[2020-02-24] MEDS ORDERED: PANTOPRAZOLE SODIUM 40 MG TAB PO SCH (09:00)
[2020-02-24] MEDS: VENLAFAXINE HCL 50 MG TABLET PO SCH ×3 (09:00→20:28)
[2020-02-24 12:00] VITALS: BP_SYST 145
[2020-02-24] MEDS: LORazepam 1 MG TABLET PO PRN (15:09)
[2020-02-24 16:00] VITALS: BP_SYST 153
[2020-02-24] MEDS ORDERED: MINERAL OIL 133 ML ENEMA RC ONE (17:30)
[2020-02-24] MEDS ORDERED: SODIUM PHOSPHATE,MONO-DIBASIC 133 ML ENEMA RC ONE (17:30)
[2020-02-24] MEDS ORDERED: MAGNESIUM CITRATE 300 ML ORAL SOLUTION PO ONE (18:30)
[2020-02-24 20:05] VITALS: BP_SYST 135
[2020-02-24] MEDS: PANTOPRAZOLE SODIUM 40 MG TAB PO SCH (20:23)
[2020-02-24] MEDS: IBUPROFEN 800 MG TABLET PO SCH (20:23)
[2020-02-24] MEDS: MIRTAZAPINE 15 MG TABLET PO SCH (20:23)
[2020-02-24] MEDS: amLODIPine BESYLATE 10 MG TABLET PO SCH (20:24)
[2020-02-24] MEDS: ENOXAPARIN SODIUM 40 MG/0.4 ML SYRINGE SUBCUT SCH (20:31)
[2020-02-25 01:11] VITALS: BP_SYST 176
[2020-02-25 01:55] VITALS: BP_SYST 154
[2020-02-25] MEDS: LR 1,000 ML IV SCH (03:31)
[2020-02-25 06:34] LABS: BASOPHILS % (AUTO) 0.7 % (0.0-2.0); EOSINOPHILS # (AUTO) 0.5 K/uL (0.0-0.4); EOSINOPHILS % (AUTO) 9.1 % (0.0-4.0); HEMATOCRIT 30.5 % (36-54); HEMOGLOBIN 10.5 g/dL (14.0-18.0); LYMPHOCYTES # (AUTO) 1.9 K/uL (1.0-5.5); LYMPHOCYTES % (AUTO) 36.4 % (20.5-51.5); MEAN CORPUSCULAR HEMOGLOBIN 29 pg (27-31); MEAN CORPUSCULAR HGB CONC 35 % (32-36); MEAN CORPUSCULAR VOLUME 85 fL (79.0-98.0); MONOCYTES # (AUTO) 0.5 K/uL (0.0-1.0); NEUTROPHILS # (AUTO) 2.3 K/uL (1.8-7.7); NEUTROPHILS % (AUTO) 44.8 % (40.0-70.0); PLATELET COUNT (AUTO) 193 K/uL (130-430); RED BLOOD CELL COUNT(AUTO) 3.59 MIL/uL (4.2-6.2); RED CELL DISTRIBUTION WIDTH 13.4 % (9.0-15.0); WHITE BLOOD COUNT (AUTO) 5.2 K/uL (4.8-10.8)
[2020-02-25 07:18] LABS: ALBUMIN 2.8 g/dL (3.4-4.8); CREATININE 0.73 mg/dL (0.55-1.30); POTASSIUM 3.6 mmol/L (3.5-5.1); TOTAL BILIRUBIN 0.7 mg/dL (0.0-1.0)
[2020-02-25 08:29] VITALS: BP_SYST 160
[2020-02-25] MEDS: VENLAFAXINE HCL 50 MG TABLET PO SCH ×3 (09:00→20:57)
[2020-02-25] MEDS: CHOLECALCIFEROL (VITAMIN D3) 2,000 UNIT TABLET PO SCH (09:09)
[2020-02-25] MEDS: TAMSULOSIN HCL 0.4 MG CAP PO SCH ×2 (09:09→20:45)
[2020-02-25] MEDS: PANTOPRAZOLE SODIUM 40 MG TAB PO SCH ×2 (09:09→20:44)
[2020-02-25] MEDS: HYDROcodone/ACETAMIN 10-325 MG TAB PO PRN ×4 (09:09→15:14)
[2020-02-25] MEDS: LACTULOSE 20 GM/30 ML UDC PO SCH ×2 (09:09→20:44)
[2020-02-25] MEDS: MULTIVITS,CA,MINERALS/IRON/FA 1 TABLET PO SCH (09:09)
[2020-02-25] MEDS: POTASSIUM CHLORIDE 20 MEQ TAB.PRT.SR PO SCH ×2 (09:10→20:44)
[2020-02-25] MEDS: IBUPROFEN 800 MG TABLET PO SCH ×3 (09:10→20:45)
[2020-02-25] MEDS: POLYETHYLENE GLYCOL 3350, 17 GM/ POWD.PACK PO SCH ×2 (09:10→20:44)
[2020-02-25] MEDS: DOCUSATE SODIUM 250 MG CAPSULE PO SCH ×2 (09:10→20:44)
[2020-02-25] MEDS: LOSARTAN POTASSIUM 50 MG TABLET (COZAAR) PO SCH (09:10)
[2020-02-25] MEDS: HYDROmorphone 1 MG INJ. 1 MG/ML AMPUL IVP PRN ×3 (09:14→18:38)
[2020-02-25 11:43] VITALS: BP_SYST 154
[2020-02-25] MEDS ORDERED: GASTROGRAFIN 120 ML ONE (15:28)
[2020-02-25 17:47] VITALS: BP_SYST 111
[2020-02-25 20:00] VITALS: BP_SYST 113
[2020-02-25] MEDS: MIRTAZAPINE 15 MG TABLET PO SCH (20:45)
[2020-02-25] MEDS: ENOXAPARIN SODIUM 40 MG/0.4 ML SYRINGE SUBCUT SCH (20:52)
[2020-02-25] MEDS: amLODIPine BESYLATE 10 MG TABLET PO SCH (20:52)
[2020-02-26] MEDS: LR 1,000 ML IV SCH ×2 (00:35→20:00)
[2020-02-26 01:10] VITALS: BP_SYST 138
[2020-02-26] MEDS: HYDROmorphone 1 MG INJ. 1 MG/ML AMPUL IVP PRN ×7 (03:39→18:16)
[2020-02-26 08:41] VITALS: BP_SYST 194
[2020-02-26] MEDS: LOSARTAN POTASSIUM 50 MG TABLET (COZAAR) PO SCH (09:00)
[2020-02-26] MEDS: VENLAFAXINE HCL 50 MG TABLET PO SCH ×3 (09:00→21:18)
[2020-02-26] MEDS: PANTOPRAZOLE SODIUM 40 MG TAB PO SCH ×2 (09:25→21:12)
[2020-02-26] MEDS: LACTULOSE 20 GM/30 ML UDC PO SCH ×2 (09:25→21:18)
[2020-02-26] MEDS: DOCUSATE SODIUM 250 MG CAPSULE PO SCH ×2 (09:25→21:12)
[2020-02-26] MEDS: POLYETHYLENE GLYCOL 3350, 17 GM/ POWD.PACK PO SCH ×3 (09:25→21:13)
[2020-02-26] MEDS: POTASSIUM CHLORIDE 20 MEQ TAB.PRT.SR PO SCH ×2 (09:26→21:12)
[2020-02-26] MEDS: IBUPROFEN 800 MG TABLET PO SCH ×3 (09:26→21:12)
[2020-02-26] MEDS: TAMSULOSIN HCL 0.4 MG CAP PO SCH ×2 (09:26→21:12)
[2020-02-26] MEDS: CHOLECALCIFEROL (VITAMIN D3) 2,000 UNIT TABLET PO SCH (09:41)
[2020-02-26 11:36] VITALS: BP_SYST 147
[2020-02-26] MEDS: MULTIVITS,CA,MINERALS/IRON/FA 1 TABLET PO SCH (12:54)
[2020-02-26] MEDS: HYDROcodone/ACETAMIN 10-325 MG TAB PO PRN (15:04)
[2020-02-26 15:31] VITALS: BP_SYST 142
[2020-02-26] MEDS ORDERED: fentaNYL 12 MCG/HR PATCH TD SCH (18:00)
[2020-02-26] MEDS ORDERED: MINERAL OIL 133 ML ENEMA RC ONE (18:00)
[2020-02-26] MEDS ORDERED: SODIUM PHOSPHATE,MONO-DIBASIC 133 ML ENEMA RC ONE (18:00)
[2020-02-26] MEDS: amLODIPine BESYLATE 10 MG TABLET PO SCH (21:11)
[2020-02-26] MEDS: MIRTAZAPINE 15 MG TABLET PO SCH (21:11)
[2020-02-26] MEDS: ENOXAPARIN SODIUM 40 MG/0.4 ML SYRINGE SUBCUT SCH (21:21)
[2020-02-27 01:19] VITALS: BP_SYST 130
[2020-02-27] MEDS: HYDROmorphone 1 MG INJ. 1 MG/ML AMPUL IVP PRN ×3 (06:34→14:34)
[2020-02-27] MEDS: VENLAFAXINE HCL 50 MG TABLET PO SCH ×3 (09:00→20:33)
[2020-02-27] MEDS: DOCUSATE SODIUM 250 MG CAPSULE PO SCH ×2 (09:14→20:28)
[2020-02-27 09:15] VITALS: BP_SYST 162
[2020-02-27] MEDS: POLYETHYLENE GLYCOL 3350, 17 GM/ POWD.PACK PO SCH ×2 (09:15→20:29)
[2020-02-27] MEDS: LOSARTAN POTASSIUM 50 MG TABLET (COZAAR) PO SCH (09:15)
[2020-02-27] MEDS: TAMSULOSIN HCL 0.4 MG CAP PO SCH ×2 (09:15→20:28)
[2020-02-27] MEDS: LACTULOSE 20 GM/30 ML UDC PO SCH ×2 (09:15→20:30)
[2020-02-27] MEDS: POTASSIUM CHLORIDE 20 MEQ TAB.PRT.SR PO SCH ×2 (09:15→20:29)
[2020-02-27] MEDS: MULTIVITS,CA,MINERALS/IRON/FA 1 TABLET PO SCH (09:16)
[2020-02-27] MEDS: IBUPROFEN 800 MG TABLET PO SCH ×3 (09:16→21:21)
[2020-02-27] MEDS: CHOLECALCIFEROL (VITAMIN D3) 2,000 UNIT TABLET PO SCH (09:16)
[2020-02-27] MEDS: PANTOPRAZOLE SODIUM 40 MG TAB PO SCH ×2 (09:16→20:29)
[2020-02-27 12:00] VITALS: BP_SYST 142
[2020-02-27 16:00] VITALS: BP_SYST 164
[2020-02-27] MEDS: LR 1,000 ML IV SCH (16:00)
[2020-02-27] MEDS: MORPHINE SULFATE 30 MG Immediate Release TABLET PO PRN ×2 (17:28→22:43)
[2020-02-27] MEDS ORDERED: MORPHINE SULFATE 30 MG Immediate Release TABLET PO ONE (19:00)
[2020-02-27] MEDS ORDERED: MORPHINE SULFATE 30 MG TABLET.SA PO ONE (19:00)
[2020-02-27] MEDS: MIRTAZAPINE 15 MG TABLET PO SCH (20:29)
[2020-02-27 20:30] VITALS: BP_SYST 126
[2020-02-27] MEDS: HYDROcodone/ACETAMIN 10-325 MG TAB PO PRN (20:30)
[2020-02-27] MEDS: ENOXAPARIN SODIUM 40 MG/0.4 ML SYRINGE SUBCUT SCH (20:40)
[2020-02-27] MEDS: amLODIPine BESYLATE 10 MG TABLET PO SCH (21:21)
[2020-02-28 00:29] VITALS: BP_SYST 128
[2020-02-28] MEDS: MORPHINE SULFATE 30 MG Immediate Release TABLET PO PRN ×3 (06:37→14:53)
[2020-02-28 10:00] VITALS: BP_SYST 147
[2020-02-28] MEDS: DOCUSATE SODIUM 250 MG CAPSULE PO SCH (10:22)
[2020-02-28] MEDS: PANTOPRAZOLE SODIUM 40 MG TAB PO SCH (10:23)
[2020-02-28] MEDS: LOSARTAN POTASSIUM 50 MG TABLET (COZAAR) PO SCH (10:23)
[2020-02-28] MEDS: POLYETHYLENE GLYCOL 3350, 17 GM/ POWD.PACK PO SCH (10:23)
[2020-02-28] MEDS: POTASSIUM CHLORIDE 20 MEQ TAB.PRT.SR PO SCH (10:23)
[2020-02-28] MEDS: LACTULOSE 20 GM/30 ML UDC PO SCH (10:24)
[2020-02-28] MEDS: MULTIVITS,CA,MINERALS/IRON/FA 1 TABLET PO SCH (10:24)
[2020-02-28] MEDS: TAMSULOSIN HCL 0.4 MG CAP PO SCH (10:24)
[2020-02-28] MEDS: IBUPROFEN 800 MG TABLET PO SCH ×2 (10:24→14:52)
[2020-02-28] MEDS: CHOLECALCIFEROL (VITAMIN D3) 2,000 UNIT TABLET PO SCH (10:24)
[2020-02-28] MEDS: VENLAFAXINE HCL 50 MG TABLET PO SCH ×2 (10:28→14:53)
[2020-02-28] MEDS ORDERED: MORP30TA PO (10:45)
[2020-02-28 12:10] VITALS: BP_SYST 142
[2020-02-28 14:00] VITALS: BP_SYST 142
== END 2020-02-28 16:40 | disposition home or self-care (01) | DRG 723 ==
LOC: SED 02:02 → SMU 11:53
PROVIDERS: ADMIT Internal Medicine; ATTEND Internal Medicine
DX: C61 Malignant neoplasm of prostate (principal); E44.1 Mild protein-calorie malnutrition; F41.9 Anxiety disorder, unspecified; E11.9 Type 2 diabetes mellitus without complications; F32.9 Major depressive disorder, single episode, unspecified; I10 Essential (primary) hypertension; E78.00 Pure hypercholesterolemia, unspecified; E78.5 Hyperlipidemia, unspecified; K76.9 Liver disease, unspecified; K59.09 Other constipation; D63.8 Anemia in other chronic diseases classified elsewhere; G89.4 Chronic pain syndrome; Z92.21 Personal history of antineoplastic chemotherapy; Z85.46 Personal history of malignant neoplasm of prostate; Z79.899 Other long term (current) drug therapy; Z68.27 Body mass index [BMI] 27.0-27.9, adult
CPT/HCPCS: 36415; 71045; 71275; 74018; 74250-TC; 80053; 82962; 83880; 84484; 85025; 85610-TC; 93005; 93970; 96374; 96375; 96376; 99285; J1170; J1650; J1815; J1885; J2060; J2270; J2274; J3010; J7120; Q9963; Q9967

== ENCOUNTER 2020-03-09 08:13 | Emergency (ER) | payer BC, SELFPAY ==
[~2020-03-09] VITALS: Ht 162.6 cm; Wt 78.0 kg
[~2020-03-09 08:13] MED LIST changes: -DOXY100C PO; -METF1000 PO; -MIRT15TA7 PO; +MORP30TA PO
--- NOTE | 2020-03-09 08:19 | NUR ---
Patient to ER bed 02 to gown for evaluation. Side rails up.
[2020-03-09 08:20] VITALS: BP_SYST 169
--- NOTE | 2020-03-09 08:21 | NUR ---
Patient arrived in the ED c/o back pain for the last 2 days. Denied any chest pain or shortness of breath. Denied any fevers, chills, nausea or vomiting. Patient is alert and oriented x3, respirations even and unlabored, speaking in full sentences, and ambulating with a steady gait. VSS, pain level 10/10. Informed of the approximate wait time. Instructed to notify ED staff for any changes in condition or worsening of symptoms while waiting to be seen by an ED provider. Patient verbalized understanding.
--- NOTE | 2020-03-09 08:23 | NUR ---
ER Dr. Davis at bedside examining patient.
[2020-03-09] MEDS ORDERED: KETAMINE 30 MG/3 ML SYRINGE 20 MG in NS 100 ML IV ONE (08:45)
[2020-03-09] MEDS ORDERED: NACL 0.9% 1,000 ML IV ONE (08:45)
[2020-03-09] MEDS ORDERED: MORPHINE 4 MG/ML INJ. SYRINGE IVP ONE ×2 (08:45→09:45)
[2020-03-09] MEDS ORDERED: PROCHLORPERAZINE EDISYLATE 10 MG/2 ML VIAL IVP ONE (08:45)
--- NOTE | 2020-03-09 08:45 | NUR ---
# 18 gauge angiocath placed to RAC. Use of asceptic technique. Opsite placed over site. Blood return noted. Blood for lab drawn from site. Flushed with 10 cc of normal saline. No evidence of infiltration noted. Patient tolerated well.
--- NOTE | 2020-03-09 09:00 | NUR ---
Administered Morphine Sulfate, Compazine IVP and Ketamine IVF as ordered by Dr. Davis. Patient tolerated the medications well. See eMAR for details.
[2020-03-09] MEDS ORDERED: KETAMINE 30 MG/3 ML SYRINGE ONE ×2 (09:05→10:09)
[2020-03-09 09:25] LABS: BASOPHILS % (AUTO) 0.4 % (0.0-2.0); EOSINOPHILS # (AUTO) 0.1 K/uL (0.0-0.4); EOSINOPHILS % (AUTO) 1.9 % (0.0-4.0); HEMOGLOBIN 10.4 g/dL (14.0-18.0); LYMPHOCYTES # (AUTO) 0.7 K/uL (1.0-5.5); LYMPHOCYTES % (AUTO) 17.3 % (20.5-51.5); MEAN CORPUSCULAR HEMOGLOBIN 29 pg (27-31); MEAN CORPUSCULAR HGB CONC 35 % (32-36); MEAN CORPUSCULAR VOLUME 85 fL (79.0-98.0); MONOCYTES % (AUTO) 1.3 % (1.7-9.3); NEUTROPHILS % (AUTO) 79.1 % (40.0-70.0); PLATELET COUNT (AUTO) 191 K/uL (130-430); RED BLOOD CELL COUNT(AUTO) 3.52 MIL/uL (4.2-6.2); RED CELL DISTRIBUTION WIDTH 13.7 % (9.0-15.0); WHITE BLOOD COUNT (AUTO) 3.8 K/uL (4.8-10.8)
[2020-03-09 09:27] LABS: CREATININE 0.77 mg/dL (0.55-1.30); POTASSIUM 3.6 mmol/L (3.5-5.1)
[2020-03-09] MEDS ORDERED: KETAMINE 30 MG/3 ML SYRINGE 30 MG in NS 100 ML IV ONE (09:45)
[2020-03-09] MEDS ORDERED: ONDANSETRON HCL 4 MG/2 ML VIAL IVP ONE (09:45)
[2020-03-09] MEDS ORDERED: oxyCODONE HCL 10 MG TAB.ER.12H PO ONE (09:45)
--- NOTE | 2020-03-09 10:26 | NUR ---
Patient moved to bed 6.
--- NOTE | 2020-03-09 10:38 | NUR ---
Social Service Note: CASINO PORTER spoke with ED physician regarding plan of care; physician asking about possible SNF placement for pain management. CASINO PORTER placed call to pt's , Jen ([phone]); Jen states that pt received his first chemo infusion last week. Pt sees Dr. Anaya for chemo/oncology. Jen states that pt has an appointment with Dr. Anaya on Monday03/11/20. Jen also states that pt has a pain management appointment on 03/12/20. Per Jen, pt is compliant with appointments, Jen states that pt is in so much pain at home that pt throws up the medications after taking them and has to take more medications to obtain comfort. Jen states that pt still wants to receive chemo. CASINO PORTER spoke with Jen about [facility] and the benefits for comfort care for pt. Jen states that she will speak to Dr. Anaya when they have their appointment this week. CASINO PORTER transferred the call with Jen to the ED so that Jen could speak with the ED physician. CASINO PORTER will remain available for support.
--- NOTE | 2020-03-09 11:00 | NUR ---
Patient ambulated to the bathroom with a steady gait.
--- NOTE | 2020-03-09 11:20 | NUR ---
X-ray done at bedside as ordered by Dr. Davis. Patient tolerated the procedure well.
[2020-03-09] MEDS ORDERED: fentaNYL 100 MCG/HR PATCH TD ONE (12:15)
[2020-03-09] MEDS ORDERED: fentaNYL 50 MCG/HR PATCH TD ONE (12:30)
--- NOTE | 2020-03-09 13:18 | NUR ---
Dr. Rosario on the phone with Dr. Davis.
[2020-03-09 15:05] VITALS: BP_SYST 134
--- NOTE | 2020-03-09 15:05 | NUR ---
ER discussed with the patient the results and treatment provided. Patient given written and verbal discharge instructions and verbalized understanding. Opportunity for questions provided and answered. Patient in stable condition, last set of vital signs within normal limits, pain scale 0/10, speaking in full sentences and ambulated with a steady gait upon discharge. ID arm band removed. Rx for percocet, enema and zofran given. Patient educated on pain management and to follow up with PMD. Medication side effect fact sheet provided.
== END 2020-03-09 15:05 | disposition home or self-care (01) ==
LOC: SED 08:13
DX: G89.3 Neoplasm related pain (acute) (chronic) (principal); M54.5 Low back pain; I10 Essential (primary) hypertension; E11.9 Type 2 diabetes mellitus without complications; E78.00 Pure hypercholesterolemia, unspecified; Z79.899 Other long term (current) drug therapy
CPT/HCPCS: 36415; 74018; 80048; 85025; 96365; 96375; 96376; 99284; J0780; J2270; J2405; J7030

== ENCOUNTER 2020-03-28 19:46 | Emergency (ER) | payer BC ==
[~2020-03-28] VITALS: Ht 172.7 cm; Wt 82.6 kg
[2020-03-28 19:57] VITALS: BP_SYST 157
[2020-03-28] MEDS ORDERED: KETAMINE 30 MG/3 ML SYRINGE IVP ONE (21:15)
[2020-03-28] MEDS ORDERED: NACL 0.9% 1,000 ML IV ONE (21:15)
[2020-03-28] MEDS ORDERED: LORazepam 2 MG/ML VIAL IVP ONE (21:15)
[2020-03-28 21:36] LABS: BASOPHILS % (AUTO) 0.1 % (0.0-2.0); HEMATOCRIT 30.7 % (36-54); HEMOGLOBIN 9.9 g/dL (14.0-18.0); LYMPHOCYTES # (AUTO) 0.5 K/uL (1.0-5.5); LYMPHOCYTES % (AUTO) 5.6 % (20.5-51.5); MEAN CORPUSCULAR HEMOGLOBIN 28 pg (27-31); MEAN CORPUSCULAR HGB CONC 32 % (32-36); MEAN CORPUSCULAR VOLUME 86 fL (79.0-98.0); MONOCYTES # (AUTO) 0.4 K/uL (0.0-1.0); MONOCYTES % (AUTO) 4.7 % (1.7-9.3); NEUTROPHILS # (AUTO) 7.5 K/uL (1.8-7.7); NEUTROPHILS % (AUTO) 89.6 % (40.0-70.0); PLATELET COUNT (AUTO) 236 K/uL (130-430); RED BLOOD CELL COUNT(AUTO) 3.56 MIL/uL (4.2-6.2); RED CELL DISTRIBUTION WIDTH 14.6 % (9.0-15.0); WHITE BLOOD COUNT (AUTO) 8.4 K/uL (4.8-10.8)
[2020-03-28 21:56] LABS: CALCIUM 9.5 mg/dL (8.4-11.0); CREATININE 0.85 mg/dL (0.55-1.30); POTASSIUM 3.4 mmol/L (3.5-5.1); TOTAL BILIRUBIN 0.8 mg/dL (0.0-1.0)
[2020-03-28 22:45] VITALS: BP_SYST 140
== END 2020-03-28 22:45 | disposition home or self-care (01) ==
LOC: SED 19:46
DX: G89.29 Other chronic pain (principal); C61 Malignant neoplasm of prostate; M54.5 Low back pain; I10 Essential (primary) hypertension; E11.9 Type 2 diabetes mellitus without complications; E78.00 Pure hypercholesterolemia, unspecified; Z79.899 Other long term (current) drug therapy
CPT/HCPCS: 36415; 80053; 85025; 96361; 96374; 96375; 99284; J2060; J7030

== ENCOUNTER 2020-03-29 03:34 | Inpatient (IN) | payer BC ==
[~2020-03-29] VITALS: Ht 172.7 cm; Wt 83.0 kg
[2020-03-29 03:40] VITALS: BP_SYST 160
[2020-03-29] MEDS ORDERED: KETAMINE 30 MG/3 ML SYRINGE IVP ONE (03:45)
[2020-03-29] MEDS ORDERED: ONDANSETRON HCL 4 MG/2 ML VIAL IVP PRN (04:00)
[2020-03-29] MEDS ORDERED: IBUPROFEN 800 MG TABLET PO PRN (04:00)
[2020-03-29 04:47] VITALS: BP_SYST 138
[2020-03-29] MEDS: HYDROmorphone 2 MG/ML VIAL IVP PRN (05:00)
[2020-03-29] MEDS: LORazepam 2 MG/ML VIAL IVP PRN (06:41)
[2020-03-29] MEDS: GABAPENTIN 100 MG CAPSULE PO SCH ×5 (09:00→22:55)
[2020-03-29 16:44] VITALS: BP_SYST 143
[2020-03-29] MEDS ORDERED: BISACODYL 10 MG/SUPPOSITORY RC PRN (16:45)
[2020-03-29] MEDS ORDERED: NALOXONE HCL 0.4 MG/ML AMP (NARCAN) IVP PRN (16:45)
[2020-03-29] MEDS ORDERED: PANTOPRAZOLE SODIUM 40 MG TAB PO ONE (18:00)
[2020-03-29] MEDS ORDERED: CHOLECALCIFEROL (VITAMIN D3) 2,000 UNIT TABLET PO ONE (18:00)
[2020-03-29] MEDS: KETOROLAC TROMETHAMINE 15 MG VIAL IVP SCH ×2 (18:26→23:05)
[2020-03-29] MEDS: TAMSULOSIN HCL 0.4 MG CAP PO SCH (18:28)
[2020-03-29] MEDS: PANTOPRAZOLE SODIUM 40 MG TAB PO SCH (18:28)
[2020-03-29] MEDS: CHOLECALCIFEROL (VITAMIN D3) 2,000 UNIT TABLET PO SCH (18:29)
[2020-03-29 20:31] VITALS: BP_SYST 135
[2020-03-29] MEDS: POLYETHYLENE GLYCOL 3350, 17 GM/ POWD.PACK PO SCH (21:00)
[2020-03-29] MEDS: POTASSIUM CHLORIDE 20 MEQ TAB.PRT.SR PO SCH (22:53)
[2020-03-29] MEDS: amLODIPine BESYLATE 10 MG TABLET PO SCH (22:54)
[2020-03-29] MEDS: DOCUSATE SODIUM 250 MG CAPSULE PO SCH (22:54)
[2020-03-29] MEDS: LORazepam 1 MG TABLET PO PRN (22:55)
[2020-03-29] MEDS: MIRTAZAPINE 15 MG TABLET PO SCH (22:56)
[2020-03-29] MEDS: Effexor XR 37.5 MG PO SCH (22:57)
[2020-03-29] MEDS: ENOXAPARIN SODIUM 40 MG/0.4 ML SYRINGE SUBCUT SCH (22:58)
[2020-03-30 03:45] VITALS: BP_SYST 136
[2020-03-30] MEDS: HYDROmorphone 2 MG/ML VIAL IVP PRN ×4 (04:19→22:48)
[2020-03-30] MEDS: KETOROLAC TROMETHAMINE 15 MG VIAL IVP SCH ×3 (06:19→17:13)
[2020-03-30 07:00] LABS: BASOPHILS % (AUTO) 0.5 % (0.0-2.0); EOSINOPHILS # (AUTO) 0.1 K/uL (0.0-0.4); EOSINOPHILS % (AUTO) 1.1 % (0.0-4.0); HEMATOCRIT 31.1 % (36-54); HEMOGLOBIN 10.3 g/dL (14.0-18.0); MEAN CORPUSCULAR HEMOGLOBIN 28 pg (27-31); MEAN CORPUSCULAR HGB CONC 33 % (32-36); MEAN CORPUSCULAR VOLUME 85 fL (79.0-98.0); MONOCYTES # (AUTO) 0.5 K/uL (0.0-1.0); MONOCYTES % (AUTO) 7.7 % (1.7-9.3); NEUTROPHILS # (AUTO) 4.7 K/uL (1.8-7.7); NEUTROPHILS % (AUTO) 74.7 % (40.0-70.0); PLATELET COUNT (AUTO) 245 K/uL (130-430); RED BLOOD CELL COUNT(AUTO) 3.64 MIL/uL (4.2-6.2); RED CELL DISTRIBUTION WIDTH 15.1 % (9.0-15.0); WHITE BLOOD COUNT (AUTO) 6.3 K/uL (4.8-10.8)
[2020-03-30 07:34] LABS: ALBUMIN 2.5 g/dL (3.4-4.8); CALCIUM 8.8 mg/dL (8.4-11.0); CREATININE 0.72 mg/dL (0.55-1.30); POTASSIUM 3.2 mmol/L (3.5-5.1); TOTAL BILIRUBIN 0.7 mg/dL (0.0-1.0)
[2020-03-30 07:47] VITALS: BP_SYST 146
[2020-03-30 07:58] LABS: TOTAL IRON BIND. CAPACITY 159 ug/dL (250-450)
[2020-03-30] MEDS: GABAPENTIN 100 MG CAPSULE PO SCH ×4 (08:32→22:36)
[2020-03-30] MEDS: POTASSIUM CHLORIDE 20 MEQ TAB.PRT.SR PO SCH ×2 (08:33→22:38)
[2020-03-30] MEDS: CHOLECALCIFEROL (VITAMIN D3) 2,000 UNIT TABLET PO SCH (08:33)
[2020-03-30] MEDS: LOSARTAN POTASSIUM 50 MG TABLET (COZAAR) PO SCH (08:34)
[2020-03-30] MEDS: DOCUSATE SODIUM 250 MG CAPSULE PO SCH ×2 (08:34→22:43)
[2020-03-30] MEDS: PANTOPRAZOLE SODIUM 40 MG TAB PO SCH (08:34)
[2020-03-30] MEDS: TAMSULOSIN HCL 0.4 MG CAP PO SCH ×2 (08:34→22:42)
[2020-03-30 12:00] VITALS: BP_SYST 136
[2020-03-30 16:00] VITALS: BP_SYST 133
[2020-03-30] MEDS: POLYETHYLENE GLYCOL 3350, 17 GM/ POWD.PACK PO SCH ×2 (17:12→22:37)
[2020-03-30 20:00] VITALS: BP_SYST 161
[2020-03-30] MEDS: ENOXAPARIN SODIUM 40 MG/0.4 ML SYRINGE SUBCUT SCH (22:35)
[2020-03-30] MEDS: amLODIPine BESYLATE 10 MG TABLET PO SCH (22:41)
[2020-03-30] MEDS: MIRTAZAPINE 15 MG TABLET PO SCH (22:42)
[2020-03-30] MEDS: Effexor XR 37.5 MG PO SCH (22:43)
[2020-03-31] VITALS: BP_SYST 170
[2020-03-31] MEDS: KETOROLAC TROMETHAMINE 15 MG VIAL IVP SCH ×4 (01:08→18:00)
[2020-03-31] MEDS: cloNIDine HCL 0.1 MG TABLET PO PRN ×2 (01:19→08:54)
[2020-03-31] MEDS: HYDROmorphone 2 MG/ML VIAL IVP PRN ×4 (03:12→22:40)
[2020-03-31 04:21] VITALS: BP_SYST 158
[2020-03-31 08:00] VITALS: BP_SYST 156
[2020-03-31] MEDS: GABAPENTIN 100 MG CAPSULE PO SCH ×4 (08:53→22:34)
[2020-03-31] MEDS: POLYETHYLENE GLYCOL 3350, 17 GM/ POWD.PACK PO SCH ×2 (08:53→22:39)
[2020-03-31] MEDS: LOSARTAN POTASSIUM 50 MG TABLET (COZAAR) PO SCH (08:53)
[2020-03-31] MEDS: POTASSIUM CHLORIDE 20 MEQ TAB.PRT.SR PO SCH ×2 (08:54→22:35)
[2020-03-31] MEDS: PANTOPRAZOLE SODIUM 40 MG TAB PO SCH (08:54)
[2020-03-31] MEDS: DOCUSATE SODIUM 250 MG CAPSULE PO SCH ×2 (08:54→22:34)
[2020-03-31] MEDS: CHOLECALCIFEROL (VITAMIN D3) 2,000 UNIT TABLET PO SCH (08:54)
[2020-03-31] MEDS: TAMSULOSIN HCL 0.4 MG CAP PO SCH ×2 (08:54→22:35)
[2020-03-31 10:06] LABS: % FREE PSA 44.3 % (.); FREE PSA 3.9 ng/mL
[2020-03-31 12:00] VITALS: BP_SYST 153
[2020-03-31] MEDS: LORazepam 2 MG/ML VIAL IVP PRN (12:43)
[2020-03-31] MEDS ORDERED: MINERAL OIL 133 ML ENEMA RC ONE ×2 (15:30→16:00)
[2020-03-31] MEDS ORDERED: POTASSIUM CHLORIDE 20 MEQ TAB.PRT.SR PO ONE (15:45)
[2020-03-31 16:00] VITALS: BP_SYST 146
[2020-03-31] MEDS ORDERED: SODIUM PHOSPHATE,MONO-DIBASIC 133 ML ENEMA RC ONE (16:00)
[2020-03-31 20:00] VITALS: BP_SYST 153
[2020-03-31] MEDS: ENOXAPARIN SODIUM 40 MG/0.4 ML SYRINGE SUBCUT SCH ×2 (21:00→22:38)
[2020-03-31] MEDS: amLODIPine BESYLATE 10 MG TABLET PO SCH (22:34)
[2020-03-31] MEDS: MIRTAZAPINE 15 MG TABLET PO SCH (22:34)
[2020-03-31] MEDS: Effexor XR 37.5 MG PO SCH (22:39)
[2020-04-01 00:30] VITALS: BP_SYST 148
[2020-04-01] MEDS: KETOROLAC TROMETHAMINE 15 MG VIAL IVP SCH ×5 (00:51→23:36)
[2020-04-01] MEDS: HYDROmorphone 2 MG/ML VIAL IVP PRN ×3 (05:57→15:50)
[2020-04-01 06:56] LABS: BASOPHILS % (AUTO) 0.4 % (0.0-2.0); EOSINOPHILS # (AUTO) 0.3 K/uL (0.0-0.4); EOSINOPHILS % (AUTO) 3.8 % (0.0-4.0); HEMATOCRIT 34.3 % (36-54); HEMOGLOBIN 11.2 g/dL (14.0-18.0); LYMPHOCYTES # (AUTO) 1.1 K/uL (1.0-5.5); LYMPHOCYTES % (AUTO) 16.2 % (20.5-51.5); MEAN CORPUSCULAR HEMOGLOBIN 28 pg (27-31); MEAN CORPUSCULAR HGB CONC 33 % (32-36); MEAN CORPUSCULAR VOLUME 86 fL (79.0-98.0); MONOCYTES # (AUTO) 0.5 K/uL (0.0-1.0); MONOCYTES % (AUTO) 7.8 % (1.7-9.3); NEUTROPHILS % (AUTO) 71.8 % (40.0-70.0); PLATELET COUNT (AUTO) 256 K/uL (130-430); RED CELL DISTRIBUTION WIDTH 15.1 % (9.0-15.0); WHITE BLOOD COUNT (AUTO) 6.9 K/uL (4.8-10.8)
[2020-04-01 06:57] LABS: CALCIUM 8.9 mg/dL (8.4-11.0); CREATININE 0.63 mg/dL (0.55-1.30); POTASSIUM 3.2 mmol/L (3.5-5.1)
[2020-04-01 08:00] VITALS: BP_SYST 138
[2020-04-01] MEDS: CHOLECALCIFEROL (VITAMIN D3) 2,000 UNIT TABLET PO SCH (09:43)
[2020-04-01] MEDS: PANTOPRAZOLE SODIUM 40 MG TAB PO SCH (09:43)
[2020-04-01] MEDS: LOSARTAN POTASSIUM 50 MG TABLET (COZAAR) PO SCH (09:43)
[2020-04-01] MEDS: DOCUSATE SODIUM 250 MG CAPSULE PO SCH ×2 (09:43→20:45)
[2020-04-01] MEDS: TAMSULOSIN HCL 0.4 MG CAP PO SCH ×2 (09:43→20:45)
[2020-04-01] MEDS: POTASSIUM CHLORIDE 20 MEQ TAB.PRT.SR PO SCH ×3 (09:43→20:46)
[2020-04-01] MEDS: GABAPENTIN 100 MG CAPSULE PO SCH ×4 (09:43→20:40)
[2020-04-01] MEDS: POLYETHYLENE GLYCOL 3350, 17 GM/ POWD.PACK PO SCH ×2 (09:43→20:41)
[2020-04-01 13:07] VITALS: BP_SYST 158
[2020-04-01 16:17] VITALS: BP_SYST 158
[2020-04-01 19:40] VITALS: BP_SYST 158
[2020-04-01] MEDS: MIRTAZAPINE 15 MG TABLET PO SCH (20:43)
[2020-04-01] MEDS: amLODIPine BESYLATE 10 MG TABLET PO SCH (20:44)
[2020-04-01] MEDS: Effexor XR 37.5 MG PO SCH (20:50)
[2020-04-01] MEDS: ENOXAPARIN SODIUM 40 MG/0.4 ML SYRINGE SUBCUT SCH (21:00)
[2020-04-02 01:28] VITALS: BP_SYST 143
[2020-04-02] MEDS: HYDROmorphone 2 MG/ML VIAL IVP PRN ×4 (03:21→21:18)
[2020-04-02] MEDS: KETOROLAC TROMETHAMINE 15 MG VIAL IVP SCH ×3 (05:38→17:24)
[2020-04-02 07:26] LABS: CALCIUM 9.1 mg/dL (8.4-11.0); CREATININE 0.74 mg/dL (0.55-1.30)
[2020-04-02 08:00] VITALS: BP_SYST 113
[2020-04-02 08:30] LABS: BASOPHILS % (AUTO) 0.5 % (0.0-2.0); EOSINOPHILS # (AUTO) 0.2 K/uL (0.0-0.4); EOSINOPHILS % (AUTO) 2.7 % (0.0-4.0); HEMATOCRIT 35.6 % (36-54); HEMOGLOBIN 11.5 g/dL (14.0-18.0); LYMPHOCYTES # (AUTO) 1.1 K/uL (1.0-5.5); LYMPHOCYTES % (AUTO) 18.1 % (20.5-51.5); MEAN CORPUSCULAR HEMOGLOBIN 28 pg (27-31); MEAN CORPUSCULAR HGB CONC 32 % (32-36); MEAN CORPUSCULAR VOLUME 86 fL (79.0-98.0); MONOCYTES # (AUTO) 0.4 K/uL (0.0-1.0); MONOCYTES % (AUTO) 6.3 % (1.7-9.3); NEUTROPHILS # (AUTO) 4.5 K/uL (1.8-7.7); NEUTROPHILS % (AUTO) 72.4 % (40.0-70.0); PLATELET COUNT (AUTO) 307 K/uL (130-430); RED BLOOD CELL COUNT(AUTO) 4.14 MIL/uL (4.2-6.2); WHITE BLOOD COUNT (AUTO) 6.2 K/uL (4.8-10.8)
[2020-04-02] MEDS: CHOLECALCIFEROL (VITAMIN D3) 2,000 UNIT TABLET PO SCH (08:34)
[2020-04-02] MEDS: POLYETHYLENE GLYCOL 3350, 17 GM/ POWD.PACK PO SCH ×2 (08:34→21:15)
[2020-04-02] MEDS: PANTOPRAZOLE SODIUM 40 MG TAB PO SCH (08:35)
[2020-04-02] MEDS: DOCUSATE SODIUM 250 MG CAPSULE PO SCH ×2 (08:35→21:17)
[2020-04-02] MEDS: POTASSIUM CHLORIDE 20 MEQ TAB.PRT.SR PO SCH ×3 (08:35→21:12)
[2020-04-02] MEDS: TAMSULOSIN HCL 0.4 MG CAP PO SCH ×2 (08:35→21:12)
[2020-04-02] MEDS: GABAPENTIN 100 MG CAPSULE PO SCH ×4 (08:37→21:12)
[2020-04-02] MEDS: LOSARTAN POTASSIUM 50 MG TABLET (COZAAR) PO SCH (08:37)
[2020-04-02] MEDS: HYDROcodone/ACETAMIN 5-325 MG TAB (NORCO/ VICODIN) PO PRN (11:06)
[2020-04-02] MEDS ORDERED: MORPHINE SULFATE 30 MG TABLET.SA PO ONE (12:15)
[2020-04-02 13:21] VITALS: BP_SYST 108
[2020-04-02 15:24] LABS: PROSTATE SPECIFIC AG TOTAL 8.8 ng/mL (0.0-4.0)
[2020-04-02 16:43] VITALS: BP_SYST 128
[2020-04-02 20:00] VITALS: BP_SYST 116
[2020-04-02] MEDS: amLODIPine BESYLATE 10 MG TABLET PO SCH (21:00)
[2020-04-02] MEDS: ENOXAPARIN SODIUM 40 MG/0.4 ML SYRINGE SUBCUT SCH (21:00)
[2020-04-02] MEDS: MIRTAZAPINE 15 MG TABLET PO SCH (21:12)
[2020-04-02] MEDS: Effexor XR 37.5 MG PO SCH (21:16)
[2020-04-02] MEDS: MORPHINE SULFATE 30 MG TABLET.SA PO SCH (23:32)
[2020-04-03] VITALS: BP_SYST 128
[2020-04-03] MEDS: HYDROmorphone 2 MG/ML VIAL IVP PRN ×4 (01:24→20:04)
[2020-04-03] MEDS: KETOROLAC TROMETHAMINE 15 MG VIAL IVP SCH ×3 (05:24→12:16)
[2020-04-03 08:00] VITALS: BP_SYST 122
[2020-04-03] MEDS: DOCUSATE SODIUM 250 MG CAPSULE PO SCH ×2 (08:32→21:00)
[2020-04-03] MEDS: LOSARTAN POTASSIUM 50 MG TABLET (COZAAR) PO SCH (08:33)
[2020-04-03] MEDS: TAMSULOSIN HCL 0.4 MG CAP PO SCH ×2 (08:33→21:00)
[2020-04-03] MEDS: CHOLECALCIFEROL (VITAMIN D3) 2,000 UNIT TABLET PO SCH (08:34)
[2020-04-03] MEDS: POTASSIUM CHLORIDE 20 MEQ TAB.PRT.SR PO SCH ×3 (08:34→21:00)
[2020-04-03] MEDS: PANTOPRAZOLE SODIUM 40 MG TAB PO SCH (08:35)
[2020-04-03] MEDS: POLYETHYLENE GLYCOL 3350, 17 GM/ POWD.PACK PO SCH ×2 (08:36→21:00)
[2020-04-03] MEDS: GABAPENTIN 100 MG CAPSULE PO SCH ×4 (08:36→21:00)
[2020-04-03] MEDS: MORPHINE SULFATE 30 MG TABLET.SA PO SCH ×2 (10:02→21:07)
[2020-04-03 12:15] VITALS: BP_SYST 96
[2020-04-03 16:15] VITALS: BP_SYST 138
[2020-04-03 19:00] VITALS: BP_SYST 128
[2020-04-03] MEDS: ENOXAPARIN SODIUM 40 MG/0.4 ML SYRINGE SUBCUT SCH (21:00)
[2020-04-03] MEDS: Effexor XR 37.5 MG PO SCH (21:00)
[2020-04-03] MEDS: MIRTAZAPINE 15 MG TABLET PO SCH (21:00)
[2020-04-03] MEDS: amLODIPine BESYLATE 10 MG TABLET PO SCH (21:00)
[2020-04-03] MEDS: LORazepam 2 MG/ML VIAL IVP PRN (21:58)
[2020-04-04 00:14] VITALS: BP_SYST 139
[2020-04-04] MEDS: DOCUSATE SODIUM 250 MG CAPSULE PO SCH ×2 (08:59→20:56)
[2020-04-04] MEDS: CHOLECALCIFEROL (VITAMIN D3) 2,000 UNIT TABLET PO SCH (08:59)
[2020-04-04] MEDS: POTASSIUM CHLORIDE 20 MEQ TAB.PRT.SR PO SCH ×3 (08:59→20:56)
[2020-04-04] MEDS: PANTOPRAZOLE SODIUM 40 MG TAB PO SCH (08:59)
[2020-04-04] MEDS: TAMSULOSIN HCL 0.4 MG CAP PO SCH ×2 (08:59→20:56)
[2020-04-04] MEDS: GABAPENTIN 100 MG CAPSULE PO SCH ×4 (08:59→20:56)
[2020-04-04] MEDS: LOSARTAN POTASSIUM 50 MG TABLET (COZAAR) PO SCH (09:00)
[2020-04-04] MEDS: MORPHINE SULFATE 30 MG Immediate Release TABLET PO PRN ×2 (09:00→09:03)
[2020-04-04] MEDS: HYDROmorphone 2 MG/ML VIAL IVP PRN ×3 (09:02→16:52)
[2020-04-04] MEDS: POLYETHYLENE GLYCOL 3350, 17 GM/ POWD.PACK PO SCH ×2 (09:02→20:56)
[2020-04-04] MEDS: MORPHINE SULFATE 30 MG TABLET.SA PO SCH ×2 (10:30→20:57)
[2020-04-04] MEDS: LORazepam 1 MG TABLET PO PRN (10:30)
[2020-04-04 12:00] VITALS: BP_SYST 147
[2020-04-04] MEDS: HYDROcodone/ACETAMIN 5-325 MG TAB (NORCO/ VICODIN) PO PRN (15:25)
[2020-04-04 16:00] VITALS: BP_SYST 123
[2020-04-04 20:00] VITALS: BP_SYST 122
[2020-04-04] MEDS: ENOXAPARIN SODIUM 40 MG/0.4 ML SYRINGE SUBCUT SCH (20:54)
[2020-04-04] MEDS: Effexor XR 37.5 MG PO SCH (20:55)
[2020-04-04] MEDS: MIRTAZAPINE 15 MG TABLET PO SCH (20:56)
[2020-04-04] MEDS: amLODIPine BESYLATE 10 MG TABLET PO SCH (20:56)
[2020-04-05] VITALS: BP_SYST 111
[2020-04-05] MEDS: HYDROmorphone 2 MG/ML VIAL IVP PRN ×3 (02:36→09:27)
[2020-04-05 08:00] VITALS: BP_SYST 142
[2020-04-05] MEDS: DOCUSATE SODIUM 250 MG CAPSULE PO SCH (08:30)
[2020-04-05] MEDS: LOSARTAN POTASSIUM 50 MG TABLET (COZAAR) PO SCH (08:31)
[2020-04-05] MEDS: CHOLECALCIFEROL (VITAMIN D3) 2,000 UNIT TABLET PO SCH (08:32)
[2020-04-05] MEDS: GABAPENTIN 100 MG CAPSULE PO SCH ×2 (08:32→13:00)
[2020-04-05] MEDS: POLYETHYLENE GLYCOL 3350, 17 GM/ POWD.PACK PO SCH (08:32)
[2020-04-05] MEDS: MORPHINE SULFATE 30 MG TABLET.SA PO SCH (08:32)
[2020-04-05] MEDS: PANTOPRAZOLE SODIUM 40 MG TAB PO SCH (08:32)
[2020-04-05] MEDS: POTASSIUM CHLORIDE 20 MEQ TAB.PRT.SR PO SCH (08:32)
[2020-04-05] MEDS: TAMSULOSIN HCL 0.4 MG CAP PO SCH (08:32)
[2020-04-05 09:06] VITALS: BP_SYST 142
[2020-04-05] MEDS ORDERED: HYDROmorphone 2 MG/ML VIAL IVP ONE (09:15)
== END 2020-04-05 15:21 | disposition hospice, home (50) | DRG 723 ==
LOC: SED 03:34 → SMU 03:55
PROVIDERS: ADMIT Internal Medicine; ATTEND Internal Medicine
PROC: 02HV33Z Insertion of Infusion Device into Superior Vena Cava, Percutaneous Approach (ICD-10-PCS; principal; 2020-04-05)
DX: C61 Malignant neoplasm of prostate (principal); C77.2 Secondary and unspecified malignant neoplasm of intra-abdominal lymph nodes; F33.2 Major depressive disorder, recurrent severe without psychotic features; C79.51 Secondary malignant neoplasm of bone; E44.1 Mild protein-calorie malnutrition; E87.6 Hypokalemia; F41.9 Anxiety disorder, unspecified; K59.09 Other constipation; G47.00 Insomnia, unspecified; D63.8 Anemia in other chronic diseases classified elsewhere; E11.9 Type 2 diabetes mellitus without complications; E78.5 Hyperlipidemia, unspecified; I10 Essential (primary) hypertension; Z51.5 Encounter for palliative care; Z79.899 Other long term (current) drug therapy; Z68.27 Body mass index [BMI] 27.0-27.9, adult
CPT/HCPCS: 36415; 71045; 80048; 80053; 82607; 83540-TC; 83550-TC; 83690-TC; 83735-TC; 84153; 85025; 93970; 96374; 99285; C1751; J1170; J1650; J1885; J2060; J2274